=== PATIENT | female | born 1935 | race Caucasian/White ===

== ENCOUNTER → 2016-10-26 | Outpatient (CLI) | payer MEDICARE ==
[~2016-10-26] MED LIST: ACETAMINOPHEN-H1 TA2 PO; ACETAMINOPHEN-O1 TAB PO; AMOXICILLIN500 M2 PO; APAP/CODEINE TAB 300; ASPIRIN ADULT L81 M1 PO; ASPIRIN81 M1 PO; ATARAX25 MG PO; ATIVAN0.5 MG PO; ATIVAN1 MG PO; AUGMENTIN 875875 MG PO; B12100 MC1 PO; BACTRIM DS 8001 TA1 PO; BUT/ASP/CAFF W/1 CAP PO; CEFUROXIME AXE250 MG PO; CENTRUM SILVER1 TA2 PO; CITALOPRAM10 MG PO; CYCLOBENZAPRINE10 MG PO; CYCLOBENZAPRINE5 M3 PO; CYMBALTA30 MG PO; DYMISTA NASAL S23 GM NS; ESTER C 500 MG-1 TAB PO; FIORICET 325 MG1 TAB PO; FLAGYL500 MG PO; FORTEO 250250 MCG/ML SC; FOSAMAX70 MG PO; HYDROCODONE BIT1 T11 PO; HYDROCODONE BIT1 T20 PO; IBU800 M1 PO; IBUPROFEN600 MG PO; INDERAL10 MG PO; LEVOFLOXACIN500 MG PO; LIDEX0.05% T; LOMOTIL 0.025 M1 TA1 PO; LORAZEPAM0.5 MG PO; LOVASTATIN40 MG PO; MIRALAX POWDER17 G1 PO; MIRALAX17 GM/DOSE PO; MOTRIN800 MG PO; NEXIUM40 MG PO; NORCO 7.5-3251 EACH PO; NORVASC10 MG PO; NORVASC5 MG PO; OMEPRAZOLE DR20 MG PO; Oscal,Oyster S500 MG PO; PERCOCET 325 MG1 TA2 PO; PLAVIX75 M1 PO; PLAVIX75 MG PO; PROPRANOLOL HCL10 M1 PO; PROPRANOLOL HCL10 MG PO; ROBAXIN500 M1 PO; ROPINIROLE HYDRO1 MG PO; TYLENOL W/CODEI1 TA2 PO; TYLENOL W/CODEI1 TA4 PO; TYLENOL500 MG PO; VIBRAMYCIN100 MG PO; VICODIN 5/500 505 MG PO; VICODIN 500 MG-1 TAB PO; VITAMIN C500 M4 PO; ZOFRAN ODT4 MG SL; ZOFRAN4 MG PO; ZOVIRAX800 MG PO; ZYRTEC1 MG/ML; ZYRTEC10 MG PO
== END | disposition home or self-care (01) ==
LOC: NM 06:48
DX: K21.9 Gastro-esophageal reflux disease without esophagitis (principal); R11.0 Nausea; R19.7 Diarrhea, unspecified; R11.2 Nausea with vomiting, unspecified; R16.0 Hepatomegaly, not elsewhere classified

== ENCOUNTER → 2017-02-20 | Outpatient (CLI) | payer MEDICARE | END | disposition home or self-care (01) | LOC: RAD 10:29 | DX: M47.894 Other spondylosis, thoracic region (principal); M40.294 Other kyphosis, thoracic region; Q25.46 Tortuous aortic arch ==

== ENCOUNTER → 2017-02-26 | Outpatient (CLI) | payer MEDICARE ==
[~2017-02-26] MED LIST changes: +NEURONTIN300 MG PO; +REQUIP2 M2 PO
[2017-02-26 12:48] LABS: EST GLOM FILT AFRICAN AMERICAN > 60 ml/min
== END | disposition home or self-care (01) ==
LOC: LAB 12:16 → CT 13:00 → LAB 13:00
PROVIDERS: Internal Medicine
DX: R06.02 Shortness of breath (principal)

== ENCOUNTER 2017-03-01 11:27 | Inpatient (IN) | payer MEDICARE ==
[~2017-03-01] VITALS: Ht 152.4 cm; Wt 58.3 kg
--- NOTE | ~2017-03-01 | PR ---
[place], [place] PROGRESS NOTE NAME: SHADY RÍOS [facility] #: [id number] UNIT #: [id number] ROOM: 504 DOCTOR: LEELA FERRERA MD BIRTHDATE: [birth year] DOS: 03/03/2017 SUBJECTIVE: The patient is feeling a lot better, does not have any new complaints. She underwent a bronchoscopy yesterday. OBJECTIVE: VITAL SIGNS: Graphic trend shows a pressure of 142/72, pulse of 74, respirations 18, temperature 98.7. LUNGS: Clear. HEART: Regular. ABDOMEN: Obese, soft, nontender. EXTREMITIES: Without any edema. ASSESSMENT AND PLAN: 1. Right middle lobe collapse, status post bronchoscopy, no evidence of any malignancy was seen. The patient's oxygenation has improved after that, and she is completely off oxygen supplementation. 2. Adult failure to thrive. We will get a PT evaluation to see whether she would benefit from outpatient PT, OT. 3. Benign hypertension, controlled. LEELA FERRERA MD CM:PNTRANS [id number] LEELA FERRERA MD 03/03/17 2342 interface
--- NOTE | ~2017-03-01 | PR ---
[place], [place] PROGRESS NOTE NAME: SHADY RÍOS [facility] #: [id number] UNIT #: [id number] ROOM: 504 DOCTOR: LEELA FERRERA MD BIRTHDATE: [birth year] DOS: 03/04/2017 HISTORY OF PRESENT ILLNESS: The patient is doing fine without any complaints. She has a slight cough, but her shortness of breath has improved. OBJECTIVE: VITAL SIGNS: Pressure is 106/50, pulse of 85, respirations 20, temperature 98.2. LUNGS: Diminished breath sounds. No wheezes, rales or rhonchi heard this morning. HEART: Regular. ABDOMEN: Obese, soft. EXTREMITIES: Without any edema. ASSESSMENT AND PLAN: 1. Right middle lobe collapse with atelectasis, possible infectious process, status post bronchoscopy. Bronch cultures are negative. The patient is started on incentive spirometer. 2. Acute hypoxic respiratory failure, which has resolved. Oxygen saturation has improved. The patient is stable and can be discharged to home today. 3. Adult failure to thrive. PT/OT did evaluate her yesterday and they feel that the patient can be discharged to home with visiting nurses and PT, OT. LEELA FERRERA MD CM:PNTRANS [phone] LEELA FERRERA MD 03/04/17 0721 interface
--- NOTE | ~2017-03-01 | PR ---
[place], [place] PROGRESS NOTE NAME: SHADY RÍOS UNIT #: [id number] ROOM: 504 DOCTOR: GRACE ASHRAF MD BIRTHDATE: [birth year] DOS: 03/04/2017 SUBJECTIVE: The patient reported reduction and improvement in symptoms of cough and shortness of breath. Denies symptoms of chest pain or abdominal pain. The patient stated that pulse oxygen saturation was measured last night at 60%, but a different instrument when used was noted as 95% to 96% saturation on 2 different instrument assessment. The cough has been noted to be decreased for this patient and markedly improved for this patient after the bronchoscopy. The shortness of breath has been resolved. OBJECTIVE: VITAL SIGNS: Showed normal temperature, respiratory rate 20, heart rate 86, blood pressure 120/60. The pulse oxygen saturation recorded on room air is 95% saturation. HEENT: Examination shows head is atraumatic. Eyes are nonicteric. NECK: Supple. CARDIOVASCULAR: S1, S2 audible. LUNGS: The patient was noted without any wheezing or crackles at the present time. ABDOMEN: Soft and nontender. EXTREMITIES: Showed no edema, clubbing, or cyanosis. LABORATORY DATA: Culture of bronchial washing was noted as negative. Chest x-ray of the patient, PA lateral view, showed persistent small subsegmental atelectasis of right middle lobe. IMPRESSION: The patient has chronic atelectasis of the right middle lobe for this patient with resolving acute tracheobronchitis, post-bronchoscopy negative cultures. Improving shortness of breath was also noted. PLAN OF TREATMENT: Discharge the patient on oral antibiotics. Use of bronchodilators and other medical management of this patient have been currently arranged for this patient. If she wished to be seen in my office followup, she can make an appointment; Otherwise, to continue to follow up with the primary care physician for that. [place], [place] PROGRESS NOTE NAME: SHADY RÍOS UNIT #: [id number] ROOM: 504 DOCTOR: GRACE ASHRAF MD BIRTHDATE: [birth year] GRACE FLORES MD CM:PNTRANS [phone] GRACE MENDEZ MD 03/05/17 0250 interface
--- NOTE | ~2017-03-01 | WRIGHTHP ---
[place], [place] PATIENT HISTORY AND PHYSICAL EXAM NAME: SHADY RÍOS [facility] #: [id number] UNIT #: [id number] ROOM: 504 DOCTOR: LEELA FERRERA MD BIRTHDATE: [birth year] DOS: 03/01/2017 HISTORY OF PRESENT ILLNESS: This patient is very well known to us, 81 years old, who came to the office last week with complaints of cough and shortness of breath. As a part of the workup, a CT scan of the chest was done, which showed a right middle lobe collapse. The patient was advised to come into the office, was noted to have increasingly short of breath, and she was admitted to the hospital with acute hypoxic respiratory failure, right middle lobe collapse. The patient denies having any complaints this morning and is quite worried about her procedures that scheduled. She denies having any fever, any chills, any chest pains or palpitations. PAST MEDICAL HISTORY: Significant for; 1. Chronic back pain, low back pain from compression fractures of the back. 2. Postmenopausal osteoporosis. 3. Frailty with falls. 4. Generalized anxiety disorder. 5. Major depression, mild, recurrent. 6. Benign hypertension. 7. Mixed hyperlipidemia. 8. Gastroesophageal reflux disease. 9. Restless legs syndrome. 10. Osteoarthritis of the LS spine. MEDICATIONS: She is on are Oyster Calcium 500 four times a day, amlodipine 5 daily, Plavix 75 daily, duloxetine 30 daily, gabapentin 300 daily, lorazepam 1 mg b.i.d., lovastatin 40 daily, multivitamin one tablet daily, propranolol 10 b.i.d., Requip 2 mg at bedtime. SOCIAL HISTORY: Nonsmoker, does not use any alcohol, very anxious. She is a retired ER nurse. PHYSICAL EXAMINATION: GENERAL: She is awake and alert and oriented, in some mild respiratory distress. VITAL SIGNS: Graphic trend shows a pressure 106/57, pulse is 68, respirations 20, temperature 97.6. LUNGS: Diminished breath sounds. HEART: Regular. ABDOMEN: Obese, soft, nontender. EXTREMITIES: Without any edema. LABORATORY DATA: White cell count is 10.8, hemoglobin 10.5, hematocrit 32.1, platelets 256. BMP: Glucose 109, BUN 10, creatinine 0.80, sodium 138, potassium 3.4, chloride 102, bicarbonate 26. ASSESSMENT AND PLAN: 1. The patient with right middle lobe collapse, which is chronic. She was admitted to the hospital in September had a bronchoscopy which was negative, but this middle lobe collapse is persistent, which is causing acute hypoxic [place], [place] PATIENT HISTORY AND PHYSICAL EXAM [facility]: [facility] [id number] UNIT #: [id number] ROOM: [facility] DOCTOR: LEELA FERRERA MD BIRTHDATE: [birth year] respiratory failure and acute respiratory distress. The patient is placed on oxygen supplementation, breathing treatments. Consultation with Dr. Be has also been obtained. Discussed with him already. 2. Chronic low back pain from compression fractures. Pain is under control with the current medication plan. 3. Generalized anxiety disorder. Restart Ativan. 4. Benign hypertension, controlled. LEELA FERRERA MD CM:HISPHYS:PATIENT HISTORY AND PHYSICAL EXAMINATION [phone] LEELA FERRERA MD 03/02/17 0806 interface
--- NOTE | ~2017-03-01 | PROC NOTE ---
[place], [place] PROCEDURE NOTE NAME: SHADY RÍOS [facility] #: [id number] UNIT #: [id number] ROOM: 504 DOCTOR: SANDRA MENDEZ MD,GRACE BIRTHDATE: [birth year] DOS: 03/02/2017 BRONCHOSCOPY NOTE PREOPERATIVE DIAGNOSES: Chronic right middle lobe subsegmental atelectasis. POSTOPERATIVE DIAGNOSES: Chronic right middle lobe subsegmental atelectasis. There were no endobronchial obstructive lesions were noted. PROCEDURE DESCRIPTION: Informed consent obtained for the patient. The patient brought to the OR and placed in supine position. Conscious sedation administered by the Anesthesia Department. After that, the bronchoscope advanced to the airway into laryngeal area. Epiglottis and vocal cord seen. The vocal cord moving symmetrically with movements. Bronchoscope advanced to the vocal cord and tracheal lumen, showed small amount of mucopurulent secretions suctioned out to the tianna level. Tianna noted sharp. Left upper, lingula, lower lobe bronchi were all noted patent for the patient. Small secretion present in the endobronchial tree, which was cleared up with normal saline wash. Right upper lobe opening for the patient was also noted patent for this patient as well. The right lower lobe opening was noted small amount of mucus impaction cleared up with normal saline wash. Right middle lobe opening was noted free of any endobronchial obstructive lesions. The mucous plug was present in the lateral subsegment of the right middle lobe cleared with a normal saline wash, sent for culture. Procedure was well tolerated by the patient without any problem. Postoperative findings will be discussed with the patient once the patient recovered the effects of acute sedation. No immediate family members were present after completion of procedure to discuss the current findings. GRACE FLORES MD CM:PROCNOTE:PROCEDURE NOTE [id number] GRACE MENDEZ MD
--- NOTE | ~2017-03-01 | DS ---
[place], [place] DISCHARGE SUMMARY [id number] UNIT #: [id number] ROOM: 504 DOCTOR: LEELA FERRERA MD BIRTHDATE: [birth year] DOS: 03/04/2017 DIAGNOSES 1. Acute right middle lobe collapse, which is chronic. 2. Bronchoscopy with negative bronchoscopy cultures. 3. Atelectasis with possible early pneumonia, possible gram negative. 4. Acute hypoxic respiratory failure with acute respiratory distress, resolved. 5. Adult failure to thrive, visiting nurse and PT, OT at home. 6. Benign hypertension. 7. Mixed hyperlipidemia. 8. Generalized anxiety disorder. 9. Chronic back pain with compression fractures, osteoporosis with postmenopausal frailty with multiple falls. DISCHARGE MEDICATIONS: Same as on admission. The only new prescriptions given were incentive spirometry q.i.d., prednisone 5 mg daily for 10 days and Ceftin 250 twice daily for 5 days. HOSPITAL COURSE: The patient is very well known to us, comes in with complaints of difficulty breathing. The patient was admitted to the hospital because of increasing cough and shortness of breath and the CT scan done as an outpatient showed right middle lobe ____. After admission, the patient was placed on oxygen and breathing treatments. Dr. Be was consulted. A bronchoscopy was performed. Bronchoscopy cultures are negative. No endobronchial lesions were noted. Mucous plug was seen, which most likely was responsible for the collapse. The patient had a PT and OT evaluation and they feel that the patient would benefit from visiting nurses at home versus SNF and patient declined SNF consultation this morning. Her saturations improved. She was taken off oxygen. Shortness of breath is better. She has slight cough. She is stable and can be discharged home on p.o. steroids and antibiotics. DISCHARGE MEDICATIONS: As dictated above. [place], [place] DISCHARGE SUMMARY NAME: SHADY RÍOS UNIT #: [id number] ROOM: 504 DOCTOR: LEELA FERRERA MD BIRTHDATE: [birth year] LEELA FERRERA MD CM:DISCHARG 7 [phone] LEELA FERRERA MD 03/04/172035 interface
[~2017-03-01 11:27] MED LIST changes: -NEURONTIN300 MG PO; -REQUIP2 M2 PO
[2017-03-01 12:00] VITALS: BP 128/59
[2017-03-01] MEDS ORDERED: REQUIP2 M2 PO (12:10)
[2017-03-01] MEDS ORDERED: NEURONTIN300 MG PO (12:10)
[2017-03-01 13:20] LABS: BASO % 0.3 % (0.0-1.0); EOS # 0.2 10*3/uL (0.0-0.4); EOS % 1.8 % (1.0-4.0); HEMATOCRIT 32.1 % (37.0-47.0); HEMOGLOBIN 10.5 g/dl (12.0-16.0); IG # 0.1 10*3/uL (0.0-0.1); LYMPH # 0.6 10*3/uL (1.3-4.4); LYMPH % 5.9 % (27.0-41.0); MEAN CORPUSCULAR HGB 30.1 pg (27.0-31.0); MEAN CORPUSCULAR HGB CONC 32.7 g/dl (33.0-37.0); MONO % 9.1 % (3.0-9.0); NEUT # 8.9 10*3/uL (2.3-7.9); NEUT % 82.3 % (47.0-73.0); PLATELET COUNT AUTOMATED 256 10*3/uL (130-400); RED BLOOD COUNT 3.49 10*6/uL (4.10-5.10); RED CELL DISTRI WIDTH 15.8 % (0-14.5); WHITE BLOOD COUNT 10.8 10*3/uL (4.8-10.8)
[2017-03-01 13:29] LABS: PROTHROMBIN TIME 10.6 SECONDS (9.0-12.4)
[2017-03-01 13:42] LABS: COL/EPI 113 SECONDS (86-157)
[2017-03-01 13:46] LABS: BUN 10 mg/dl (7-24); CARBON DIOXIDE 26 mmol/L (21-32); CHLORIDE 102 mmol/L (98-107); EST GLOM FILT AFRICAN AMERICAN > 60 ml/min; GLUCOSE 109 mg/dL (65-99); POTASSIUM 3.4 mmol/L (3.5-5.1); SODIUM 138 mmol/L (136-145)
[2017-03-01 16:00] VITALS: BP 98/47
[2017-03-01 20:02] VITALS: BP 99/46
[2017-03-02] VITALS (9 sets, daily range): BP systolic 88–112; BP diastolic 45–63
[2017-03-03] VITALS: BP 142/72; BP 177/116
[2017-03-03 08:00] VITALS: BP 96/53
[2017-03-03 12:00] VITALS: BP 105/53
[2017-03-03 15:09] LABS: ACID FAST SPEC PROCESSING Concentration (.)
[2017-03-03 16:00] VITALS: BP 112/58
[2017-03-03 20:00] VITALS: BP 99/44
[2017-03-04] VITALS: BP 106/58
[2017-03-04] MEDS ORDERED: CEFUROXIME AXE250 MG PO (07:00)
[2017-03-04] MEDS ORDERED: PREDNISONE5 MG PO (07:00)
[2017-03-04 07:32] LABS: BUN 8 mg/dl (7-24); CARBON DIOXIDE 31 mmol/L (21-32); CHLORIDE 100 mmol/L (98-107); EST GLOM FILT AFRICAN AMERICAN > 60 ml/min; GLUCOSE 104 mg/dL (65-99); POTASSIUM 3.2 mmol/L (3.5-5.1); SODIUM 140 mmol/L (136-145)
[2017-03-04 08:00] VITALS: BP 116/56; BP 120/60
== END 2017-03-04 09:45 | disposition home or self-care (01) | DRG 177 ==
LOC: 5E 11:27
PROVIDERS: Internal Medicine; Internal Medicine Critical Care Medicine
PROC: 0BCB8ZZ Extirpation of Matter from Left Lower Lobe Bronchus, Via Natural or Artificial Opening Endoscopic (ICD-10-PCS; principal; 2017-03-02)
PROC: 0BC98ZZ Extirpation of Matter from Lingula Bronchus, Via Natural or Artificial Opening Endoscopic (ICD-10-PCS; principal; 2017-03-02)
PROC: 0BC68ZZ Extirpation of Matter from Right Lower Lobe Bronchus, Via Natural or Artificial Opening Endoscopic (ICD-10-PCS; principal; 2017-03-02)
PROC: 0BC58ZZ Extirpation of Matter from Right Middle Lobe Bronchus, Via Natural or Artificial Opening Endoscopic (ICD-10-PCS; principal; 2017-03-02)
PROC: 0BC18ZZ Extirpation of Matter from Trachea, Via Natural or Artificial Opening Endoscopic (ICD-10-PCS; principal; 2017-03-02)
DX: J15.6 Pneumonia due to other Gram-negative bacteria (principal); J96.01 Acute respiratory failure with hypoxia; F33.0 Major depressive disorder, recurrent, mild; J98.19 Other pulmonary collapse; T17.890A Other foreign object in other parts of respiratory tract causing asphyxiation, initial encounter; F41.1 Generalized anxiety disorder; I10 Essential (primary) hypertension; E78.2 Mixed hyperlipidemia; J20.9 Acute bronchitis, unspecified; R62.7 Adult failure to thrive; M81.0 Age-related osteoporosis without current pathological fracture; R54 Age-related physical debility; G89.29 Other chronic pain; R29.6 Repeated falls; M54.9 Dorsalgia, unspecified; K21.9 Gastro-esophageal reflux disease without esophagitis; G25.81 Restless legs syndrome; E66.9 Obesity, unspecified; Z68.25 Body mass index [BMI] 25.0-25.9, adult

== ENCOUNTER → 2017-07-27 | Outpatient (CLI) | payer MEDICARE ==
[~2017-07-27] MED LIST changes: +NEURONTIN300 MG PO; +PREDNISONE5 MG PO; +REQUIP2 M2 PO
[2017-07-27 12:41] LABS: CREATININE 0.92 mg/dL (0.55-1.02)
== END | disposition home or self-care (01) ==
LOC: LAB 12:08 → CT 13:00
PROVIDERS: Internal Medicine
DX: R91.1 Solitary pulmonary nodule (principal); R06.02 Shortness of breath; R07.81 Pleurodynia; R11.0 Nausea; Z90.710 Acquired absence of both cervix and uterus; Z85.42 Personal history of malignant neoplasm of other parts of uterus

== ENCOUNTER 2017-10-17 14:03 | Inpatient (IN) | payer MEDICARE ==
[~2017-10-17] VITALS: Ht 152.4 cm; Wt 51.3 kg
--- NOTE | ~2017-10-17 | WRIGHTHP ---
[place], [place] PATIENT HISTORY AND PHYSICAL EXAM NAME: SHADY RÍOS [facility] #: [id number] UNIT #: [id number] ROOM: 411 DOCTOR: SARTHAK ABDI MD BIRTHDATE: [birth year] DOS: 10/17/2017 HISTORY OF PRESENT ILLNESS: The patient is an 82-year-old female with a past medical history of: 1. Adult failure to thrive. 2. Benign essential hypertension. 3. Mixed hyperlipidemia. 4. Generalized anxiety disorder. 5. Postmenopausal osteoporosis and compression fractures of the vertebrae in the past. 6. Frailty and multiple falls. The patient presented to the Emergency Department with complaints of nausea, vomiting and diarrhea, which presented acutely and patient was seen in the Emergency Department. The patient had been sick for approximately 6 days and finally she was feeling some abdominal distention. The patient had lost her appetite. No complaints of any blood in her stools and no vomiting. The patient was recommended for admission and further management. After admission, the patient is starting to feel better. Nausea has resolved and her diarrhea has also getting better. She is having soft stools now and able to tolerate some diet. At home, she was unable to eat. No chest pain, no shortness of breath, no other GI or urinary symptoms. REVIEW OF SYSTEMS: LUNGS: No increasing shortness of breath or wheezing. GASTROINTESTINAL: Complains of nausea, vomiting and diarrhea at home. CARDIOVASCULAR: No chest pains or palpitations. FAMILY HISTORY: Noncontributory. HOME MEDICATIONS: Lovastatin, amlodipine, ropinirole, Plavix. PHYSICAL EXAMINATION: GENERAL: Alert and oriented x 3, in no visible distress. Generalized weakness. HEENT AND NECK: Extraocular movements are intact. Sclerae are anicteric. Oral mucosa is moist and clean. No obvious facial weakness. Neck is supple without any lymphadenopathy. No thyromegaly. No JVD. No carotid arterial bruits. LUNGS: Clear to auscultation. No wheezing. No rhonchi. CARDIOVASCULAR SYSTEM: Heart rate is regular in rate and rhythm. S1 and S2 normally audible. No significant murmur or any other abnormal cardiac sounds. ABDOMEN: Soft, nontender. No obvious organomegaly. Bowel sounds are present. No obvious herniation. EXTREMITIES: Without significant cyanosis or edema. Warm to touch. CENTRAL NERVOUS SYSTEM: Alert and oriented x 3. Cranial nerves II-XII are intact. Speech is normal. The patient is able to move all extremities. Normal muscle strength. Deep tendon reflexes are equal on both sides. Plantars were downgoing. LABORATORY DATA: Urine culture is negative. Normal serum electrolytes. Hemoglobin is 9.1, otherwise normal CBC. Urinalysis not showing any signs of infection. CAT scan of the abdomen and pelvis showed multiple distended loops of small bowel and colon with fluid filled distention of the stomach suggestive [place], [place] PATIENT HISTORY AND PHYSICAL EXAM [facility] [id number] UNIT #: [id number] ROOM: 411 DOCTOR: SARTHAK ABDI MD BIRTHDATE: [birth year] and suggestive of enteritis and colitis, partial small-bowel obstruction. Potassium level of 3.4, leukocytosis from yesterday has resolved. Yesterday, white cell count was 12,000. IMPRESSION: 1. The patient's partial small-bowel obstruction, nausea, vomiting and diarrhea with abdominal pains have all improved and patient being hydrated with normal saline and she is starting to eat now. 2. Old age, frail with adult failure to thrive. The patient is to work with physical therapy. We are taking bedsore precautions. 3. Hypokalemia, to be replaced with potassium supplements. Repeat serum electrolytes are normal. 4. L3 compression fracture and chronic lower back pains, controlled. Also, history of compression fracture of L4 lumbar vertebra. SARTHAK ABDI MD CM:HISPHYS:PATIENT HISTORY AND PHYSICAL EXAMINATION [phone] SARTHAK ABDI MD 10/18/171910 interface
[2017-10-17 14:09] VITALS: BP 124/55
[2017-10-17 14:36] LABS: BASO % 0.3 % (0.0-1.0); EOS # 0.1 10*3/uL (0.0-0.4); EOS % 1.1 % (1.0-4.0); HEMATOCRIT 32.6 % (37.0-47.0); HEMOGLOBIN 10.5 g/dl (12.0-16.0); LYMPH # 0.7 10*3/uL (1.3-4.4); LYMPH % 5.8 % (27.0-41.0); MEAN CELL VOLUME 95.9 fl (81.0-99.0); MEAN CORPUSCULAR HGB 30.9 pg (27.0-31.0); MEAN CORPUSCULAR HGB CONC 32.2 g/dl (33.0-37.0); MEAN PLATELET VOLUME 9.3 fl (9.6-12.3); MONO # 0.8 10*3/uL (0.1-1.0); MONO % 6.4 % (3.0-9.0); NEUT # 10.5 10*3/uL (2.3-7.9); PLATELET COUNT AUTOMATED 266 10*3/uL (130-400); RED CELL DISTRI WIDTH 16.4 % (0-14.5); WHITE BLOOD COUNT 12.2 10*3/uL (4.8-10.8)
[2017-10-17 14:53] LABS: ALBUMIN 3.3 gm/dl (3.1-4.5); ALKALINE PHOSPHATASE 95 U/L (45-117); BUN 9 mg/dl (7-24); CHLORIDE 109 mmol/L (98-107); CREATININE 0.75 mg/dL (0.55-1.02); POTASSIUM 3.4 mmol/L (3.5-5.1); SGOT/AST 21 IU/L (3-35); SGPT/ALT 17 U/L (12-78); SODIUM 143 mmol/L (136-145); TOTAL PROTEIN 6.3 gm/dL (6.4-8.2)
[2017-10-17 14:59] LABS: TROPONIN I < 0.015 ng/ml (<0.045)
[2017-10-17 16:04] LABS: BILIRUBIN NEGATIVE (NEGATIVE); BLOOD NEGATIVE (NEGATIVE); CLARITY CLEAR (CLEAR); COLOR YELLOW (YELLOW); GLUCOSE NEGATIVE (NEGATIVE); KETONE 2+ (NEGATIVE); LEUKO ESTERASE NEGATIVE (NEGATIVE); NITRITE NEGATIVE (NEGATIVE); PH 5.5 (5.0-9.0); SPECIFIC GRAVITY 1.015 (1.005-1.030); UROBILINOGEN 0.2 E.U./dl (0.2-1.0)
[2017-10-17 16:11] LABS: BACTERIA 3+; EPITHELIAL CELLS 0-2; MUCOUS TRACE; WBC 0-2 wbc/hpf (0-5)
[2017-10-17 17:25] VITALS: BP 148/72
[2017-10-17 18:02] VITALS: BP 148/72
[2017-10-17 20:00] VITALS: BP 97/53
[2017-10-18] VITALS: BP 102/66
[2017-10-18 06:18] LABS: BASO % 0.3 % (0.0-1.0); EOS # 0.1 10*3/uL (0.0-0.4); EOS % 1.1 % (1.0-4.0); HEMATOCRIT 28.7 % (37.0-47.0); HEMOGLOBIN 9.1 g/dl (12.0-16.0); LYMPH # 0.7 10*3/uL (1.3-4.4); LYMPH % 8.9 % (27.0-41.0); MEAN CORPUSCULAR HGB 30.4 pg (27.0-31.0); MEAN CORPUSCULAR HGB CONC 31.7 g/dl (33.0-37.0); MEAN PLATELET VOLUME 9.2 fl (9.6-12.3); MONO # 0.6 10*3/uL (0.1-1.0); MONO % 7.4 % (3.0-9.0); NEUT # 6.2 10*3/uL (2.3-7.9); NEUT % 81.9 % (47.0-73.0); PLATELET COUNT AUTOMATED 230 10*3/uL (130-400); RED BLOOD COUNT 2.99 10*6/uL (4.10-5.10); RED CELL DISTRI WIDTH 16.3 % (0-14.5); WHITE BLOOD COUNT 7.6 10*3/uL (4.8-10.8)
[2017-10-18 06:24] LABS: BUN 7 mg/dl (7-24); CHLORIDE 110 mmol/L (98-107); CREATININE 0.67 mg/dL (0.55-1.02); POTASSIUM 3.7 mmol/L (3.5-5.1); SODIUM 144 mmol/L (136-145)
[2017-10-18 08:00] VITALS: BP 98/72
[2017-10-18] MEDS ORDERED: REQUIP2 MG PO (11:55)
[2017-10-18] MEDS ORDERED: AMLODIPINE BESYL5 MG PO (11:59)
[2017-10-18 12:00] VITALS: BP 86/48
[2017-10-18 16:00] VITALS: BP 102/76
[2017-10-18 20:00] VITALS: BP 92/58
[2017-10-19] VITALS: BP 129/83
[2017-10-19 06:09] LABS: BASO % 0.3 % (0.0-1.0); EOS # 0.1 10*3/uL (0.0-0.4); EOS % 2.2 % (1.0-4.0); HEMATOCRIT 29.9 % (37.0-47.0); HEMOGLOBIN 9.6 g/dl (12.0-16.0); LYMPH # 0.8 10*3/uL (1.3-4.4); LYMPH % 13.1 % (27.0-41.0); MEAN CELL VOLUME 96.8 fl (81.0-99.0); MEAN CORPUSCULAR HGB 31.1 pg (27.0-31.0); MEAN CORPUSCULAR HGB CONC 32.1 g/dl (33.0-37.0); MEAN PLATELET VOLUME 8.8 fl (9.6-12.3); MONO # 0.5 10*3/uL (0.1-1.0); MONO % 8.5 % (3.0-9.0); NEUT # 4.6 10*3/uL (2.3-7.9); NEUT % 75.6 % (47.0-73.0); PLATELET COUNT AUTOMATED 236 10*3/uL (130-400); RED BLOOD COUNT 3.09 10*6/uL (4.10-5.10); RED CELL DISTRI WIDTH 16.3 % (0-14.5)
[2017-10-19 06:35] LABS: BUN 6 mg/dl (7-24); CHLORIDE 108 mmol/L (98-107); CREATININE 0.84 mg/dL (0.55-1.02); POTASSIUM 3.1 mmol/L (3.5-5.1); SODIUM 142 mmol/L (136-145)
[2017-10-19 08:00] VITALS: BP 101/48
== END 2017-10-19 10:41 | disposition home or self-care (01) | DRG 392 ==
LOC: ED 14:03 → EDHOLD 16:16 → 4E 16:16
PROVIDERS: Internal Medicine; Nurse Practitioner Family
DX: K52.9 Noninfective gastroenteritis and colitis, unspecified (principal); K56.600 Partial intestinal obstruction, unspecified as to cause; M48.56XA Collapsed vertebra, not elsewhere classified, lumbar region, initial encounter for fracture; M54.5 Low back pain; G89.29 Other chronic pain; E87.6 Hypokalemia; R62.7 Adult failure to thrive; E78.2 Mixed hyperlipidemia; I10 Essential (primary) hypertension; M81.0 Age-related osteoporosis without current pathological fracture; F41.1 Generalized anxiety disorder; Z91.81 History of falling; Z88.1 Allergy status to other antibiotic agents; Z88.5 Allergy status to narcotic agent; Z88.8 Allergy status to other drugs, medicaments and biological substances; Z79.899 Other long term (current) drug therapy; Z79.02 Long term (current) use of antithrombotics/antiplatelets; Z87.440 Personal history of urinary (tract) infections; Z90.710 Acquired absence of both cervix and uterus; Z98.42 Cataract extraction status, left eye; Z90.722 Acquired absence of ovaries, bilateral; Z90.79 Acquired absence of other genital organ(s); Z82.49 Family history of ischemic heart disease and other diseases of the circulatory system; Z83.3 Family history of diabetes mellitus; Z80.9 Family history of malignant neoplasm, unspecified

== ENCOUNTER 2017-12-26 17:33 | Emergency (ER) | payer MEDICARE ==
[~2017-12-26] VITALS: Ht 152.4 cm; Wt 49.0 kg
[~2017-12-26 17:33] MED LIST changes: +AMLODIPINE BESYL5 MG PO; +REQUIP2 MG PO
[2017-12-26 17:38] VITALS: BP 145/92
[2017-12-26 18:27] LABS: BASO % 0.4 % (0.0-1.0); EOS # 0.2 10*3/uL (0.0-0.4); EOS % 2.8 % (1.0-4.0); HEMATOCRIT 34.5 % (37.0-47.0); HEMOGLOBIN 10.8 g/dl (12.0-16.0); LYMPH # 0.8 10*3/uL (1.3-4.4); LYMPH % 10.3 % (27.0-41.0); MEAN CELL VOLUME 95.3 fl (81.0-99.0); MEAN CORPUSCULAR HGB 29.8 pg (27.0-31.0); MEAN CORPUSCULAR HGB CONC 31.3 g/dl (33.0-37.0); MEAN PLATELET VOLUME 9.5 fl (9.6-12.3); MONO # 0.6 10*3/uL (0.1-1.0); MONO % 7.6 % (3.0-9.0); NEUT % 78.4 % (47.0-73.0); PLATELET COUNT AUTOMATED 233 10*3/uL (130-400); RED BLOOD COUNT 3.62 10*6/uL (4.10-5.10); RED CELL DISTRI WIDTH 16.2 % (0-14.5); WHITE BLOOD COUNT 7.6 10*3/uL (4.8-10.8)
[2017-12-26 18:36] LABS: INTERNATIONAL NORM RATIO 0.9 (2.0-3.5)
[2017-12-26 18:46] LABS: ALBUMIN 3.3 gm/dl (3.1-4.5); ALKALINE PHOSPHATASE 104 U/L (45-117); BUN 12 mg/dl (7-24); CHLORIDE 102 mmol/L (98-107); CREATININE 0.89 mg/dL (0.55-1.02); LIPASE 139 U/L (73-393); POTASSIUM 3.8 mmol/L (3.5-5.1); SGOT/AST 20 IU/L (3-35); SGPT/ALT 19 U/L (12-78); SODIUM 137 mmol/L (136-145); TOTAL PROTEIN 6.7 gm/dL (6.4-8.2)
[2017-12-26 18:48] LABS: TROPONIN I < 0.015 ng/ml (<0.045)
== END 2017-12-26 20:28 | disposition home or self-care (01) ==
LOC: ED 17:33
PROVIDERS: Physician Assistant
DX: K92.2 Gastrointestinal hemorrhage, unspecified (principal); Z88.1 Allergy status to other antibiotic agents; Z79.899 Other long term (current) drug therapy

== ENCOUNTER 2018-05-01 17:03 | Inpatient (IN) | payer MEDICARE ==
[~2018-05-01] VITALS: Ht 152.4 cm; Wt 50.0 kg
--- NOTE | ~2018-05-01 | PR ---
[place], [place] PROGRESS NOTE NAME: SHADY RÍOS [facility] #: [id number] UNIT #: [id number] ROOM: 405 DOCTOR: LEELA FERRERA MD BIRTHDATE: [birth year] DOS: 05/03/2018 SUBJECTIVE: The patient is feeling much better, does not have any more nausea, emesis. Did undergo endoscopy yesterday by Dr. Adams and showed some duodenal ulcers. The patient does not have any complaints of chest pains, palpitations, abdominal pain this morning. OBJECTIVE EXAMINATION: GENERAL: She is awake and alert and oriented. LUNGS: Diminished breath sounds, clear. HEART: Regular. ABDOMEN: Soft. EXTREMITIES: Without any edema. ASSESSMENT AND PLAN: 1. 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 The patient is placed on proton pump inhibitors and has remained stable. The plan is to discharge her to home today to be followed up as an outpatient. Iron was low and iron supplementation will be ordered. 2. Benign hypertension, controlled. Restart home medications. LEELA FERRERA MD CM:PNTRANS [phone] LEELA FERRERA MD 05/03/1803 interface
--- NOTE | ~2018-05-01 | CON ---
[place], [place] REPORT OF CONSULTATION [id number] UNIT #: [id number] ROOM: 405 DOCTOR: BETSEY WEBSTER MD BIRTHDATE: [birth year] DOS: 05/02/2018 HISTORY OF PRESENT ILLNESS: An 83-year-old patient who presented with coffee-ground emesis and the patient was on Plavix and there was concern about contribution of Plavix to her coffee-ground products of the emesis. The patient was admitted for definitive evaluation with holding Plavix and endoscopy possibility. White blood cell was 15, H and H of 12 and 40. Normal single chest x-ray. INR 0.9. Comprehensive metabolic panel, GFR of greater than 60. Electrolytes balanced, liver function test normal. Amylase and lipase normal. Troponin normal. CBC, H and H 10 and 33, drop and iron studies low 40s. PAST MEDICAL HISTORY: Associated with hypertension, hyperlipidemia, chronic back pain, nausea, hematemesis, and postmenopausal osteoporosis. SOCIAL HISTORY: Nonsmoker, nonalcohol consumer. FAMILY HISTORY: Noncontributory. ALLERGIES: TO MULTI MEDICATIONS, FENTANYL, CIPROFLOXACIN, LEVOFLOXACIN, MEPERIDINE, PHENERGAN, AND PROPARACAINE POSSIBILITY. MEDICATION: List was reviewed. She has been on pantoprazole amongst others as well as Plavix. PAST SURGICAL HISTORY: Parathyroidectomy, hysterectomy, cataract, tubal ligation, and oophorectomy. REVIEW OF SYSTEMS: HEENT: Denies double vision, blurred vision. RESPIRATORY: Denies acute shortness of breath. CARDIOVASCULAR: Denies acute chest pain. DIGESTIVE SYSTEM: Hematemesis. PHYSICAL EXAMINATION: VITAL SIGNS: Stable. HEENT: Head normocephalic, nontraumatic. Mouth and buccal mucosa benign. NECK: Supple, no thyromegaly, no cervical lymphadenopathy. CHEST: Symmetric anatomy, equal expansion. No wheeze, no rhonchi. HEART: Grade 1/6 systolic murmur at left sternal border. ABDOMEN: Soft. No hepato-organomegaly. Bowel sounds present. EXTREMITIES: No cyanosis, no pedal edema. NEUROLOGIC: Alert and oriented to time, place, and person. IMPRESSION: Hematemesis, drop in H and H, etiology unknown. The patient is on Plavix. Plavix has been on hold since yesterday. OTHER ADJUNCTIVE DIAGNOSES: As outlined above. We are going to proceed with panendoscopy. [place], [place] REPORT OF CONSULTATION NAME: SHADY RÍOS UNIT #: [id number] ROOM: 405 DOCTOR: DARIN ISLAS,BETSEY BIRTHDATE: [birth year] BETSEY WEBSTER MD CM:CONSTR:REPORT OF CONSULTATION 1326 05/11/18 1430 interface
--- NOTE | ~2018-05-01 | O ---
[place], [place] OPERATIVE NOTE NAME: SHADY RÍOS UNIT #: [id number] ROOM: 405 DOCTOR: BETSEY WEBSTER MD BIRTHDATE: [birth year] DOS: 05/02/2018 GASTROENDOSCOPIC REPORT INDICATIONS: An 83-year-old patient who was presented with chief complaint of hematemesis multiple times and the patient has been on Plavix and has been concerned about a source of bleeding, otherwise. Consultation has been in detail dictated. There has been drop in H and H from admission. PAST MEDICAL HISTORY: As identified in consultation. PROCEDURE: Today's procedure part of investigation is panendoscopy plus biopsy and photographic series. PREMEDICATION: Propofol. SCOPE: Olympus forward-viewing gastroscope Q10 video. REPORT: After putting the patient in left lateral position and application of lubricant to the scope, the scope was introduced. Thereafter, under direct visualization, advanced through the length of esophagus without difficulty. Esophagus, cervical, thoracic and distal within normal limits. Small hiatal hernia and about approximately 3cm mass was identified. Gastric pouch was entered. Mild gastritis seen. Duodenal bulb, second and third part within normal limits. Antral biopsy was obtained for H. pylori. GI reflection of the scope reveals a small ulceration in the hiatal sac consistent with Isra ulcer and photographed. Air was suctioned out. The patient was extubated, tolerated the procedure well. IMPRESSION: Hiatal hernia, mild gastritis, [place] ulcer in the hiatal sac. PLAN AND DISCUSSION: We are going to keep her on Protonix 40 mg daily. We are going to add Extra Strength, Gaviscon tablets 1 at bedtime, elevation of the head of the bed 6 inch all time. She is going to be fed today. Thank you again for your kind referral. [place], [place] OPERATIVE NOTE NAME: SHADY RÍOS UNIT #: [id number] ROOM: 405 DOCTOR: BETSEY WEBSTER MD BIRTHDATE: [birth year] BETSEY WEBSTER MD CM:OPRECORD:OPERATIVE NOTE [phone] BETSEY WEBSTER MD 05/11/18 1501 interface
--- NOTE | ~2018-05-01 | WRIGHTHP ---
[place], [place] PATIENT HISTORY AND PHYSICAL EXAM NAME: SHADY RÍOS [facility] #: [id number] UNIT #: [id number] ROOM: 405 DOCTOR: LEELA FERRERA MD BIRTHDATE: [birth year] DOS: 05/01/2018 HISTORY OF PRESENT ILLNESS: An 83-year-old patient, who is very well known to us. The patient states that for the last 3-4 days, she has been increasingly nauseous and had a large emesis yesterday, which was coffee ground, so decided to come into the Emergency Room. She denies having any chest pains or palpitations, does not have any fever or chills, does not have any abdominal pain, nausea, or any emesis. The patient decided to come into the Emergency Room, where she was evaluated and was admitted. This morning, the patient seems to feeling a little bit better. She has some minimal abdominal discomfort and some minimal nausea, but does not have any more emesis. Does not have any diarrhea, does not have any chest pains or palpitations. PAST MEDICAL HISTORY: Significant for: 1. Last hospitalization in 09/2017 with nausea and emesis. At that time, she was admitted with small-bowel obstruction. 2. Also has past medical history of chronic back pain from compression fractures. 3. Postmenopausal osteoporosis. 4. Benign hypertension. 5. Generalized anxiety disorder. 6. Mixed hyperlipidemia. MEDICATIONS ON ADMISSION: Plavix 75 daily, amlodipine 2.5 daily, Bentyl 10 daily p.r.n., cyclobenzaprine 10 t.i.d. p.r.n., duloxetine 30 daily, lovastatin 40 daily, Protonix 40 daily, propranolol 10 b.i.d., Requip 2 mg daily and Zofran 4 mg. SOCIAL HISTORY: Nonsmoker, does not use any alcohol. She is a retired ER nurse. PHYSICAL EXAMINATION: GENERAL: She is awake and alert and oriented. VITAL SIGNS: Blood pressure is 127/79, pulse of 110, respirations 19, and temperature 98.7. LUNGS: Diminished breath sounds. No wheezes, rales or rhonchi heard. HEART: Regular. ABDOMEN: Obese, soft, nontender. Bowel sounds present. EXTREMITIES: Without any edema. ASSESSMENT AND PLAN: 1. The patient admitted with nausea, emesis with coffee-ground material. She did not have a Gastroccult here because she has not had any emesis since admission, but because of her previous history of ileus and emesis of coffee-ground material, an endoscopy will need to be done. She is also on Plavix, so an endoscopy is essential before we restart the Plavix. The patient is placed on IV Protonix, IV fluids. Consultation of Dr. Adams has been obtained. 2. Benign hypertension, controlled. 3. Anemia, rule out iron deficiency. Iron and ferritin have been ordered. [place], [place] PATIENT HISTORY AND PHYSICAL EXAM NAME: SHADY RÍOS UNIT #: [id number] ROOM: 405 DOCTOR: LEELA FERRERA MD BIRTHDATE: [birth year] LEELA FERRERA MD CM:HISPHYS:PATIENT HISTORY AND PHYSICAL EXAMINATION 1 LEELA FERRERA MD 05/02/18 0943 interface
--- NOTE | ~2018-05-01 | DS ---
[place], [place] DISCHARGE SUMMARY [id number] UNIT #: [id number] ROOM: 405 DOCTOR: LEELA FERRERA MD BIRTHDATE: [birth year] DOS: 05/03/2018 DIAGNOSES: 1. Acute gastritis. 2. 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 3. Benign hypertension. 4. Hypothyroidism. 5. Generalized anxiety disorder. 6. Chronic back pain from compression fractures and postmenopausal osteoporosis. 7. Iron deficiency anemia. 8. Possible urinary tract infection. Urine culture not available yet. DISCHARGE MEDICATIONS: The patient's medications are iron sulfate 325 mg daily. The rest of the new prescriptions were Ceftin 250 twice daily for 5 days, metoclopramide 5 mg twice daily p.r.n. for nausea, lovastatin 40 daily, amlodipine 2.5 daily, Cymbalta 30 daily, Plavix 75 daily, Requip 2 mg at bedtime, Protonix 40 daily, propranolol 10 b.i.d., cyclobenzaprine 10 t.i.d. p.r.n. for back spasm, dicyclomine 10 daily p.r.n. for abdominal pain, Zofran 4 mg q. 4 p.r.n. for nausea, emesis. HOSPITAL COURSE: This patient is 83 years old, comes in after having nausea and a large coffee-ground emesis at home. She was admitted, had an iron level which was very low at 42. Iron supplements were started. The patient also underwent endoscopy after continuing the Protonix. The patient was taken to the OR by Dr. Adams and was found to have a Isra ulcer of the hiatal sac, acute erosive gastritis of the stomach and procedures were all finished, the patient was also placed on iron supplements, Gaviscon and Reglan. This morning the patient has no complaints, does not have any nausea, emesis and the plan is to discharge her to home today. Follow up as an outpatient. [place], [place] DISCHARGE SUMMARY NAME: SHADY RÍOS UNIT #: [id number] ROOM: 405 DOCTOR: LEELA FERRERA MD BIRTHDATE: [birth year] LEELA FERRERA MD CM:MAURY [id number] LEELA FERRERA MD 05/03/18 1627 interface
[2018-05-01 17:06] VITALS: BP 114/74
[2018-05-01 17:53] LABS: BASO % 0.3 % (0.0-1.0); EOS # 0.1 10*3/uL (0.0-0.4); EOS % 0.6 % (1.0-4.0); HEMOGLOBIN 12.7 g/dl (12.0-16.0); LYMPH % 6.3 % (27.0-41.0); MEAN CELL VOLUME 96.9 fl (81.0-99.0); MEAN CORPUSCULAR HGB 30.8 pg (27.0-31.0); MEAN CORPUSCULAR HGB CONC 31.8 g/dl (33.0-37.0); MEAN PLATELET VOLUME 9.9 fl (9.6-12.3); MONO % 6.9 % (3.0-9.0); NEUT # 12.9 10*3/uL (2.3-7.9); NEUT % 85.4 % (47.0-73.0); PLATELET COUNT AUTOMATED 303 10*3/uL (130-400); RED BLOOD COUNT 4.13 10*6/uL (4.10-5.10); RED CELL DISTRI WIDTH 16.4 % (0-14.5); WHITE BLOOD COUNT 15.1 10*3/uL (4.8-10.8)
[2018-05-01 18:02] LABS: INTERNATIONAL NORM RATIO 0.9 (2.0-3.5)
[2018-05-01 18:09] LABS: ALBUMIN 3.6 gm/dl (3.1-4.5); ALKALINE PHOSPHATASE 98 U/L (45-117); BUN 21 mg/dl (7-24); CHLORIDE 103 mmol/L (98-107); LIPASE 85 U/L (73-393); POTASSIUM 4.5 mmol/L (3.5-5.1); SGOT/AST 23 IU/L (3-35); SGPT/ALT 19 U/L (12-78); SODIUM 139 mmol/L (136-145); TOTAL PROTEIN 6.8 gm/dL (6.4-8.2)
[2018-05-01 18:10] LABS: TROPONIN I < 0.015 ng/ml (<0.045)
[2018-05-01 19:09] VITALS: BP 100/54
[2018-05-01] MEDS ORDERED: PROTONIX TR40 M1 PO (19:32)
[2018-05-01] MEDS ORDERED: PROPRANOLOL HCL10 MG PO (19:33)
[2018-05-01] MEDS ORDERED: Zofran4 MG SL (19:34)
[2018-05-01] MEDS ORDERED: CYCLOBENZAPRINE10 MG PO (19:34)
[2018-05-01] MEDS ORDERED: DICYCLOMINE HCL10 MG PO (19:35)
[2018-05-02] VITALS (8 sets, daily range): BP systolic 104–130; BP diastolic 45–79
[2018-05-02 06:30] LABS: BASO % 0.3 % (0.0-1.0); EOS # 0.2 10*3/uL (0.0-0.4); EOS % 1.9 % (1.0-4.0); LYMPH # 0.8 10*3/uL (1.3-4.4); LYMPH % 8.2 % (27.0-41.0); MEAN CELL VOLUME 98.8 fl (81.0-99.0); MEAN CORPUSCULAR HGB 30.5 pg (27.0-31.0); MEAN CORPUSCULAR HGB CONC 30.8 g/dl (33.0-37.0); MEAN PLATELET VOLUME 9.1 fl (9.6-12.3); MONO # 0.9 10*3/uL (0.1-1.0); MONO % 8.6 % (3.0-9.0); NEUT # 8.1 10*3/uL (2.3-7.9); NEUT % 80.4 % (47.0-73.0); RED BLOOD COUNT 3.38 10*6/uL (4.10-5.10); RED CELL DISTRI WIDTH 16.4 % (0-14.5); WHITE BLOOD COUNT 10.1 10*3/uL (4.8-10.8)
[2018-05-02 06:37] LABS: HEMATOCRIT 33.4 % (37.0-47.0); HEMOGLOBIN 10.3 g/dl (12.0-16.0); PLATELET COUNT AUTOMATED 208 10*3/uL (130-400)
[2018-05-02 07:00] LABS: BUN 15 mg/dl (7-24); CHLORIDE 111 mmol/L (98-107); CREATININE 0.82 mg/dL (0.55-1.02); POTASSIUM 4.5 mmol/L (3.5-5.1); SODIUM 144 mmol/L (136-145)
[2018-05-02 19:50] LABS: BILIRUBIN NEGATIVE (NEGATIVE); BLOOD NEGATIVE (NEGATIVE); CLARITY CLEAR (CLEAR); COLOR YELLOW (YELLOW); GLUCOSE NEGATIVE (NEGATIVE); KETONE 2+ (NEGATIVE); LEUKO ESTERASE NEGATIVE (NEGATIVE); NITRITE NEGATIVE (NEGATIVE); SPECIFIC GRAVITY <= 1.005 (1.005-1.030); UROBILINOGEN 0.2 E.U./dl (0.2-1.0)
[2018-05-02 20:01] LABS: RBC 0-2 rbc/hpf (0-2)
[2018-05-03] VITALS: BP 136/73
[2018-05-03 06:01] LABS: BASO % 0.4 % (0.0-1.0); EOS # 0.3 10*3/uL (0.0-0.4); EOS % 3.5 % (1.0-4.0); HEMATOCRIT 30.7 % (37.0-47.0); HEMOGLOBIN 9.4 g/dl (12.0-16.0); LYMPH # 0.5 10*3/uL (1.3-4.4); LYMPH % 7.2 % (27.0-41.0); MEAN CELL VOLUME 99.4 fl (81.0-99.0); MEAN CORPUSCULAR HGB 30.4 pg (27.0-31.0); MEAN CORPUSCULAR HGB CONC 30.6 g/dl (33.0-37.0); MEAN PLATELET VOLUME 8.9 fl (9.6-12.3); MONO # 0.6 10*3/uL (0.1-1.0); NEUT % 80.1 % (47.0-73.0); PLATELET COUNT AUTOMATED 177 10*3/uL (130-400); RED BLOOD COUNT 3.09 10*6/uL (4.10-5.10); RED CELL DISTRI WIDTH 16.3 % (0-14.5); WHITE BLOOD COUNT 7.5 10*3/uL (4.8-10.8)
[2018-05-03 06:16] LABS: BUN 7 mg/dl (7-24); CHLORIDE 113 mmol/L (98-107); CREATININE 0.68 mg/dL (0.55-1.02); POTASSIUM 3.7 mmol/L (3.5-5.1); SODIUM 147 mmol/L (136-145)
[2018-05-03] MEDS ORDERED: REGLAN5 MG PO (06:55)
[2018-05-03] MEDS ORDERED: CEFUROXIME AXE250 MG PO (06:55)
[2018-05-03] MEDS ORDERED: FERROUS GLUCON324 M1 PO (06:58)
[2018-05-03 08:00] VITALS: BP 126/60
== END 2018-05-03 09:27 | disposition home or self-care (01) | DRG 378 ==
LOC: ED 17:03 → EDHOLD 19:27 → 4E 19:27
PROVIDERS: Internal Medicine; Physician Assistant
PROC: 0DB78ZX Excision of Stomach, Pylorus, Via Natural or Artificial Opening Endoscopic, Diagnostic (ICD-10-PCS; principal; 2018-05-02)
DX: K29.01 Acute gastritis with bleeding (principal); N39.0 Urinary tract infection, site not specified; D50.9 Iron deficiency anemia, unspecified; I10 Essential (primary) hypertension; K44.9 Diaphragmatic hernia without obstruction or gangrene; M54.9 Dorsalgia, unspecified; G89.29 Other chronic pain; F41.1 Generalized anxiety disorder; K26.4 Chronic or unspecified duodenal ulcer with hemorrhage; E78.2 Mixed hyperlipidemia; E03.9 Hypothyroidism, unspecified; M81.0 Age-related osteoporosis without current pathological fracture; Z79.899 Other long term (current) drug therapy; Z88.1 Allergy status to other antibiotic agents; Z88.8 Allergy status to other drugs, medicaments and biological substances; Z90.710 Acquired absence of both cervix and uterus; Z98.42 Cataract extraction status, left eye; Z82.49 Family history of ischemic heart disease and other diseases of the circulatory system; Z83.3 Family history of diabetes mellitus; Z80.9 Family history of malignant neoplasm, unspecified; Z98.51 Tubal ligation status

== ENCOUNTER → 2018-08-05 | Outpatient (CLI) | payer MEDICARE ==
[~2018-08-05] MED LIST changes: +DICYCLOMINE HCL10 MG PO; +FERROUS GLUCON324 M1 PO; +NORCO 5-325 TA1 EACH PO; +PROTONIX TR40 M1 PO; +REGLAN5 MG PO; +Zofran4 MG SL
== END | disposition home or self-care (01) ==
LOC: MRI 13:23
DX: M17.12 Unilateral primary osteoarthritis, left knee (principal); M81.0 Age-related osteoporosis without current pathological fracture; M25.462 Effusion, left knee; M25.562 Pain in left knee

== ENCOUNTER 2018-09-20 15:35 | Emergency (ER) | payer MEDICARE ==
[~2018-09-20] VITALS: Ht 152.4 cm; Wt 49.9 kg
[~2018-09-20 15:35] MED LIST changes: -NORCO 5-325 TA1 EACH PO
[2018-09-20 15:39] VITALS: BP 114/71
[2018-09-20] MEDS ORDERED: NORCO 5-325 TA1 EACH PO (17:39)
== END 2018-09-20 17:33 | disposition home or self-care (01) ==
LOC: ED 15:35
DX: S42.211A Unspecified displaced fracture of surgical neck of right humerus, initial encounter for closed fracture (principal); S00.83XA Contusion of other part of head, initial encounter; S80.211A Abrasion, right knee, initial encounter; Z79.899 Other long term (current) drug therapy; Z88.1 Allergy status to other antibiotic agents; Z90.710 Acquired absence of both cervix and uterus; Z88.8 Allergy status to other drugs, medicaments and biological substances; W18.2XXA Fall in (into) shower or empty bathtub, initial encounter; Y93.89 Activity, other specified; Y92.091 Bathroom in other non-institutional residence as the place of occurrence of the external cause; Y99.8 Other external cause status

== ENCOUNTER → 2018-09-28 | Outpatient (CLI) | payer MEDICARE ==
[~2018-09-28] MED LIST changes: +NORCO 5-325 TA1 EACH PO
== END | disposition home or self-care (01) ==
LOC: CT 10:21
DX: S42.201A Unspecified fracture of upper end of right humerus, initial encounter for closed fracture (principal); M25.411 Effusion, right shoulder; M19.011 Primary osteoarthritis, right shoulder; W19.XXXA Unspecified fall, initial encounter; Y93.89 Activity, other specified; Y92.89 Other specified places as the place of occurrence of the external cause; Y99.8 Other external cause status

== ENCOUNTER 2018-11-08 13:09 | Inpatient (IN) | payer MEDICARE ==
[~2018-11-08] VITALS: Ht 149.9 cm; Wt 55.1 kg
--- NOTE | ~2018-11-08 | WRIGHTHP ---
[place], [place] PATIENT HISTORY AND PHYSICAL EXAM NAME: SHADY RÍOS [facility] #: [id number] UNIT #: [id number] ROOM: 521 DOCTOR: SARTHAK ABDI MD BIRTHDATE: [birth year] DOS: 11/08/2018 HISTORY OF PRESENT ILLNESS: The patient is an 83-year-old female with a past medical history of: 1. Osteoporosis with multiple compression fractures of her back and other multiple fractures from falls with chronic back pains. The patient has postmenopausal osteoporosis. 2. The patient has ulcer in the hiatal sac with GI bleed history in the past. 3. History of benign essential hypertension. 4. Old age and disability and ambulatory dysfunction. 5. Hypothyroidism. 6. Generalized anxiety disorder. 7. Iron deficiency anemia. The patient presented to the Emergency Department with significant right hip pains and CT of the right hip showed nondisplaced fracture of the tip of the greater trochanter of the right femur and a hematoma posterior to the greater trochanter, deep to the gluteal muscles. X-ray of the lumbar spine showed moderate superior endplate compression fracture at L1, worse than seen in November 2015. The patient without chest pain, increasing shortness of breath. No GI or urinary symptoms. REVIEW OF SYSTEMS: RESPIRATORY: No increasing shortness of breath. GASTROINTESTINAL: No nausea, vomiting, diarrhea, constipation. CARDIOVASCULAR: No chest pains or palpitations. MEDICATIONS: The patient takes amlodipine, Plavix, Flexeril, Cymbalta, [place], iron, lovastatin, metoclopramide, Protonix, propranolol, ropinirole at home. FAMILY HISTORY: Noncontributory. ALLERGIES: Known allergies to QUINOLONES, FENTANYL, PHENERGAN, DEMEROL. PHYSICAL EXAMINATION: GENERAL: Alert, oriented x 3, in no visible distress, with generalized weakness. HEENT AND NECK: Extraocular movements are intact. Sclerae are anicteric. Oral mucosa is moist and clean. No obvious facial weakness. Neck is supple without any lymphadenopathy. No thyromegaly. No JVD. No carotid arterial bruits. LUNGS: Clear to auscultation. No wheezing. No rhonchi. CARDIOVASCULAR SYSTEM: Heart rate is regular in rate and rhythm. S1 and S2 normally audible. No significant murmur or any other abnormal cardiac sounds. ABDOMEN: Soft, nontender. No obvious organomegaly. Bowel sounds are present. No obvious herniation. EXTREMITIES: Without significant cyanosis or edema. Warm to touch. CENTRAL NERVOUS SYSTEM: Alert and oriented x 3. Cranial nerves II-XII are intact. Speech is normal. The patient is able to move all extremities. Normal [place], [place] PATIENT HISTORY AND PHYSICAL EXAM NAME: SHADY RÍOS [facility] #: [id number] UNIT #: [id number] ROOM: 521 DOCTOR: SARTHAK ABDI MD BIRTHDATE: [birth year] muscle strength. Deep tendon reflexes are equal on both sides. Plantars were downgoing. LABORATORY DATA: CT scan results as mentioned above and lumbar spine showed L1 compression fracture as well as vertebroplasty at L3 and L4. IMPRESSION AND PLAN: 1. The patient presenting with nondisplaced fracture of the right greater trochanter with significant pains. The patient is 83-year-old and unable to ambulate. The patient is being admitted and Dr. Ordaz, the orthopedic has been consulted. I will start her on physical therapy and continue Vicodin and fentanyl for pain control. 2. Benign essential hypertension. Blood pressure will be monitored and treated. 3. Hypothyroidism, replace with thyroid supplements. 4. Generalized anxiety disorder, will be treated and controlled as necessary. 5. I am consulting Dr. Ordaz to follow. SARTHAK ABDI MD CM:HISPHYS:PATIENT HISTORY AND PHYSICAL EXAMINATION 08 36 SARTHAK ABDI MD 11/08/182038 interface
--- NOTE | ~2018-11-08 | DS ---
[place], [place] DISCHARGE SUMMARY NAME: SHADY RÍOS [facility] #: [id number] UNIT #: [id number] ROOM: 521 DOCTOR: SARTHAK ABDI MD BIRTHDATE: [birth year] DOS: 11/11/2018 DISCHARGE DIAGNOSES: 1. The patient with inability to ambulate. 2. Multiple compression fractures of the thoracic spine, chronic back pains and history of kyphoplasty. 3. Fracture of the greater trochanter on the right side, nondisplaced. 4. Hyperkalemia. 5. Hypothyroidism. 6. Generalized anxiety disorder. 7. Benign essential hypertension, postmenopausal severe osteoporosis. 8. History of ulcer in the hiatal sac with gastrointestinal bleed history in the past. 9. Old age and disability and ambulatory dysfunction. 10. Iron-deficiency anemia. The patient presented to the Emergency Department with significant right hip pains and CT scan showed a nondisplaced fracture of the tip of the greater trochanter of the right femur. There was also hematoma posterior to the greater trochanter deep to the gluteal muscles. The patient was admitted and evaluated by Dr. Ordaz, the orthopedic surgeon and worked with physical therapy. The patient is now ambulating in the hallways and refused to go for rehab for physical therapy. Pain is being controlled with opioids and the patient to be discharged to home to follow up with Dr. Gloria Lara, her PCP within the week of discharge. Hyperkalemia, was followed and resolved. Hypothyroidism treated with thyroid supplements. Generalized anxiety disorder, being followed, treated and controlled. Hypothyroidism is replaced with thyroid supplements. Benign essential hypertension. Blood pressures were staying on the lower side. Her Norvasc, which was a very small dose, was stopped. LABORATORY DATA: Normal serum electrolytes, potassium level has come down to normal at 4.5. MRI of the right hip showed large gluteal hematoma related to avulsion fracture of the gluteus medius and minimus insertion sites. The patient with moderate superior endplate compression of L1, vertebroplasties of L3 and L4. DISCHARGE MANAGEMENT: Ropinirole 2 mg daily, Cymbalta 30 mg daily, Plavix 75 mg daily, Protonix 40 mg a day, propranolol 10 mg b.i.d., simvastatin 40 mg a day, Flexeril 10 mg 3 times a day as needed, Vicodin every 6 hours p.r.n. for pain. Follow up with her PCP, Dr. Gloria Lara within a week. [place], [place] DISCHARGE SUMMARY NAME: SHADY RÍOS UNIT #: [id number] ROOM: 521 DOCTOR: SARTHAK ABDI MD BIRTHDATE: [birth year] SARTHAK ABDI MD CM:DISCHARG [id number] SARTHAK ABDI MD 11/12/18 0101 interface
--- NOTE | ~2018-11-08 | PR ---
[place], [place] PROGRESS NOTE [id number] UNIT #: [id number] ROOM: 521 DOCTOR: SARTHAK ABDI MD BIRTHDATE: [birth year] DOS: 11/10/2018 SUBJECTIVE: The patient is feeling better. She says she is ambulating better with the walker and would not like to go for rehabilitation, rather than be discharged home tomorrow. OBJECTIVE: VITAL SIGNS: Blood pressure 110/56, heart rate of 80 beats per minute, breathing 16 times per minute, temperature 98.2 degrees Fahrenheit. GENERAL APPEARANCE: The patient is alert and oriented x 3, in no visible distress. Generalized weakness. HEENT AND NECK: Exam within normal limits. CARDIOVASCULAR SYSTEM: Heart rate is regular in rate and rhythm. S1 and S2 normally audible. LUNGS: Clear to auscultation. ABDOMEN: Soft, nontender. No obvious organomegaly. Bowel sounds are present. EXTREMITIES: Without significant cyanosis or edema. IMPRESSION: 1. Hyperkalemia, resolved. 2. Compression fracture of the thoracic spine with kyphoplasty in the past with chronic back pains, controlled with Vicodin and fentanyl. 3. Nondisplaced fracture of the right greater trochanter, evaluated by Dr. Ordaz. 4. Adult failure to thrive and ambulatory dysfunction. Patient to work with physical therapy. 5. Hypothyroidism, replaced with supplements. 6. Generalized anxiety disorder, treated and controlled as necessary. 7. Benign essential hypertension. Blood pressures are being monitored and staying on the lower side, so I will discontinue her amlodipine. SARTHAK ABDI MD CM:PNTRANS [phone] SARTHAK ABDI MD 11/11/18221 interface
--- NOTE | ~2018-11-08 | PR ---
[place], [place] PROGRESS NOTE [id number] UN[facility] #: [id number] ROOM: 521 DOCTOR: SARTHAK ABDI MD BIRTHDATE: [birth year] DOS: 11/09/2018 SUBJECTIVE: The patient is feeling better as compared to yesterday, waiting for Dr. Ordaz's consult. OBJECTIVE: GENERAL APPEARANCE: The patient is alert and oriented x 3, in no visible distress. Generalized weakness. VITAL SIGNS: Blood pressure 107/59, heart rate 70 beats per minute, breathing 16 times per minute, temperature 98 degrees Fahrenheit. HEENT AND NECK: Exam within normal limits. CARDIOVASCULAR SYSTEM: Heart rate is regular in rate and rhythm. S1 and S2 normally audible. LUNGS: Clear to auscultation. ABDOMEN: Soft, nontender. No obvious organomegaly. Bowel sounds are present. EXTREMITIES: Without significant cyanosis or edema. IMPRESSION: 1. Hyperkalemia with a potassium level of 5.2 will be followed. 2. Compression fracture of the T-spine with history of kyphoplasty and chronic back pains controlled with Vicodin and fentanyl. 3. Nondisplaced fracture of the right greater trochanter to be evaluated by Dr. Ordaz. 4. Adult failure to thrive and ambulatory dysfunction. The patient to work with Physical Therapy. 5. Hypothyroidism, replaced with supplements. 6. Generalized anxiety disorder to be treated as necessary. 7. Benign essential hypertension, treated and controlled. SARTHAK ABDI MD CM:PNTRANS [id number] SARTHAK ABDI MD 11/10/18 0423 interface
[2018-11-08 13:09] VITALS: BP 118/61
--- NOTE | 2018-11-08 16:18 | NUR ---
RESTING IN BED WITH EYES CLOSED RESPS ARE EASY AND NON LABORED.
--- NOTE | 2018-11-08 16:51 | NUR ---
SKIN TEAR LEFT FOREARM. INJURED BY HER CAT. NO SURROUNDING REDNESS NOTED.
[2018-11-08 17:50] VITALS: BP 117/61
--- NOTE | 2018-11-08 17:50 | NUR ---
Time: 1749 A 83 year old FEMALE admitted to 5E under services of DR. JIN ISLAS,SARTHAK Sweeney Pt. arrived via stretcher from ER. Chief complaint: PAIN,ACUTE. JOJO GONZALEZ
--- NOTE | 2018-11-08 18:47 | NUR ---
NEW CONSULT FOR DR HALE CALLED TO ANSWERING SERVICE.
--- NOTE | 2018-11-08 18:49 | NUR ---
SPOKE WITH DR HALE- SIMEON ORDER RECEIVED FOR MRI OF RIGHT HIP.
--- NOTE | 2018-11-08 21:36 | NUR ---
PATIENT STATES THAT PAIN IS 5/10 NOW PATIENT GIVEN FLEXRIL FOR PAIN AND MUSCLE SPAMS .
--- NOTE | 2018-11-08 22:13 | NUR ---
PATIENT GIVEN NORCO FOR 8/10 HIP PAIN FROM FRACTURE WILL CONTINUE TO MONITOR
[2018-11-09] VITALS: BP 108/50
--- NOTE | 2018-11-09 05:24 | NUR ---
PATIENT SLEPT ALL NIGHT WITH NO OTHER COMPLAINTS OF PAIN. MELITA NOW THIS MORNING PATIENT GIVEN NORCO FOR PAIN IN RIGHT HIP STATES THAT IT ACHES BUT SHE DOES NOT WANT IT TO GET TO AN 8 AGAIN. WILL MONITOR.
[2018-11-09 07:18] LABS: BASO % 0.8 % (0.0-1.0); EOS # 0.3 10*3/uL (0.0-0.4); EOS % 6.4 % (1.0-4.0); HEMATOCRIT 33.6 % (37.0-47.0); HEMOGLOBIN 10.3 g/dl (12.0-16.0); LYMPH # 0.6 10*3/uL (1.3-4.4); LYMPH % 11.5 % (27.0-41.0); MEAN CELL VOLUME 102.4 fl (81.0-99.0); MEAN CORPUSCULAR HGB 31.4 pg (27.0-31.0); MEAN CORPUSCULAR HGB CONC 30.7 g/dl (33.0-37.0); MEAN PLATELET VOLUME 9.1 fl (9.6-12.3); MONO # 0.6 10*3/uL (0.1-1.0); MONO % 10.7 % (3.0-9.0); NEUT # 3.7 10*3/uL (2.3-7.9); NEUT % 69.8 % (47.0-73.0); PLATELET COUNT AUTOMATED 246 10*3/uL (130-400); RED BLOOD COUNT 3.28 10*6/uL (4.10-5.10); RED CELL DISTRI WIDTH 16.6 % (0-14.5); WHITE BLOOD COUNT 5.3 10*3/uL (4.8-10.8)
--- NOTE | 2018-11-09 07:42 | NUR ---
PHYSICAL THERAPY Nursing screen received. PT orders also received. Thank you. Susy Sepulveda,PT
[2018-11-09 07:45] LABS: BUN 8 mg/dl (7-24); CHLORIDE 107 mmol/L (98-107); CREATININE 0.82 mg/dL (0.55-1.02); SODIUM 143 mmol/L (136-145)
[2018-11-09 07:54] LABS: POTASSIUM 5.2 mmol/L (3.5-5.1)
--- NOTE | 2018-11-09 07:58 | NUR ---
PHYSICAL THERAPY PT orders received. Multiple new fracturs noted. Will require Dr Ordaz consult with determination if surgery required and weight bearing status permitted. In addition: ? new compression fractures L5 and ? progression fx L!, ? if vertebralplasty appropriate. Await consultations and weigth bearing status permitted via ortho. Thank you for this referral. Susy Sepulveda,PT
[2018-11-09 08:00] VITALS: BP 107/59
--- NOTE | 2018-11-09 11:53 | NUR ---
SHADY RÍOS [place] [id number] Please refer to the physician's history and physical for past medical history, comorbid conditions, and allergies. Diagnosis: COMPRESSION FX, LUMBAR SPINE, CLOSED RIGHT HIP Ian Score: 16,AT RISK WOUND DESCRIPTIONS: Location of the wound: left forearm Type of wound: skin tear Thickness: Partial Size: 1.1cm x 0.4cm x 0.1cm Tunneling: none Undermining: none Sinus Tract: none Presence of Exudate: Serous Amount: Light Color: Red Odor: None Periwound Skin Appearance: Normal Wound edges: approximated Pain (associated with wound): none at time of assessment How does patient state this happened? pt stated her cat scratch her 3 days ago. Surface the patient is resting on: Isoflex SKIN PREVENTION RECOMMENDATION: 1. Pressure redistribution support surface as appropriate 2. Elevate heels 3. Remove boots/TEDS every shift and reapply 4. Head of bed 30 degrees as tolerated 5. Assess nutrition and hydration 6. Manage moisture 7. Avoid the use of containment devices while in bed 8. Use absorptive products on surfaces limit layers of linens on bed 9. Turn and reposition every 1-2 hours in bed and every 1 hour in chair as tolerated 10. Weight shifts every 15 minutes while up in chair 11. Offloading with pillows or device to keep heels elevated off bed 12. Monitor skin at least every shift 13. Inspect under medical devices twice a day WOUND TREATMENT RECOMMENDATIONS: Skin tear guidelines: Cleanse left forearm with nss and apply sureprep around the wound therahoney to wound bed and cover with optifoam gentle.
[2018-11-09 12:00] VITALS: BP 94/46
--- NOTE | 2018-11-09 13:33 | NUR ---
Dr. Jose notified of wound care recommendations.
--- NOTE | 2018-11-09 13:35 | NUR ---
Rotary Furnace Operator in to talk to patient. Patient states lives at HOME with ALONE WITH SONS LIVING NEARBY. There are SOME steps in the home. Physician: MAISHA Pharmacy: [facility] Home health services: JUST RELEASED FROM [facility] NOT SURE WHICH ONE Patient's level of ADLs: MODERATE ASSIST Patient has working utilities: YES DME: NONE Follow-up physician's appointment after d/c: PT PREFERS TO MAKE OWN AFTER DISCHARGE Does patient want to access PORTAL?: NO Discharge plan PT STATES SHE LIVES HOME ALONE WITH SONS LIVING NEARBY AND CHECKING ON HER FREQUENLY. PT STATES SHE HAS HAD FALLS AT HOME BUT NONE RECENTLY. PT SAYS SHE IS WAITING ON DR HALE TO SEE HER BUT IF SHE HAS TO HAVE SURGERY SHE WANTS TO GO TO [place] WITH DR DUCKWORTH. ATTEMPED TO TALK TO PT ABOUT SNF FOR PT OR HOME HEALTH. PT STATES IF I DON'T HAVE TO HAVE SURGERY I DON'T NEED THEM. PT SON IS PRESENT AND STATES IF SHE CAN'T WALK HE CAN'T TAKE CARE OF HER. PT SAYS SHE THINKS SHE CAN WALK. PT HAD NOT WORKED WITH PT WHEN I WAS IN TO SEE HER. WILL WAIT FOR PT NOTES AND DR HALE TO SEE PT THEN REVIST PT ABOUT DISCHARGE PLANS. WILL CONTINUE TO FOLLOW.. WALTER GONZALEZ
--- NOTE | 2018-11-09 14:05 | NUR ---
PT DOWN FOR MRI.
--- NOTE | 2018-11-09 15:06 | NUR ---
PT BACK FROM MRI.
[2018-11-09 16:00] VITALS: BP 102/57
--- NOTE | 2018-11-09 16:10 | NUR ---
Nursing screen received and chart review completed. Recommend OT evaluation at this time. Thank you. Kirsten Buckner OTR/L
[2018-11-09 20:00] VITALS: BP 118/53
--- NOTE | 2018-11-09 22:00 | NUR ---
HS MEDICATIONS TAKEN WITH EASE. ASSESSMENT COMPLETE. PT DENIES PAIN AT THIS TIME AND ADVISED TO RING CALL [place] FOR NURSE IF SHE DOES BEGIN TO HAVE PAIN. PT REMINDED OF PRN MEDICATIONS. RESPIRATIONS EASY AND UNLABORED ON ROOM AIR. NO S/S OF DISTRESS. CALL LIGHT IN REACH.
[2018-11-10] VITALS: BP 98/53
--- NOTE | 2018-11-10 02:41 | NUR ---
PT RESTING IN BED, NO S/S OF DISTRESS. RESPIRATIONS EASY AND UNLABORED ON ROOM AIR. ALL SAFETY MEASURES IN PLACE. CALL LIGHT IN REACH.
--- NOTE | 2018-11-10 05:24 | NUR ---
PT C/O GENERALIZED PAIN. NORCO GIVEN AT THIS TIME. WILL MONITOR FOR EFFECTIVENESS. CALL LIGHT IN REACH.
[2018-11-10 07:09] LABS: BUN 10 mg/dl (7-24); CHLORIDE 107 mmol/L (98-107); CREATININE 0.86 mg/dL (0.55-1.02); POTASSIUM 4.5 mmol/L (3.5-5.1); SODIUM 142 mmol/L (136-145)
[2018-11-10 08:00] VITALS: BP 110/56
--- NOTE | 2018-11-10 10:30 | NUR ---
IN TO TALK TO PT. SHE IS AGREEABLE TO GO TO REHAB SUITES. SHOES SALESPERSON INFORMED.
--- NOTE | 2018-11-10 11:59 | NUR ---
PT JUST IN AND STATES THAT PT WALKED WELL WITH HER AND NOW WANTS TO GO HOME AND NOT TO REHAB SUITES.
--- NOTE | 2018-11-10 12:24 | NUR ---
PT IS AGREEABLE TO HOME HEALTH FOR NURSE AND PT.
--- NOTE | 2018-11-10 13:36 | NUR ---
PHYSICAL THERAPY PAtient evaluated on 5, full evaluation to follow. Continue with PT as per plan of care with fall, injury to right hip permitted WBAT via orthopedics and acute debility precautions. Recommend home with home health RN and PT and aides prn. PAtient is moderate complexity via chart review, tests and evaluation: [id number]. Thank you for this referral. Susy Sepulveda,PT
--- NOTE | 2018-11-10 14:09 | NUR ---
PHYSICAL THERAPY Patient presented to therapy in sitting position with NO CHAIR ALARM ATTACHED and report of 3/10 pain in the R hip. Patient agrees to therapy session. Patient was identified by name and . Patient performed STS transfer with SBA. Patient ambulated with W/W and CGA X 1 for 180' x 1 with no spO2 and no LOB or SOB. Patient transferred back to sitting position in bedside chair with SBA. Patient was left in bedside chair with call light within reach and chair alarm tested and attached to chair and patient. There was NO CHAIR ALARM when this ADDICTION THERAPIST went into patient's room. This ADDICTION THERAPIST went to find a chair alarm and did attach the alarm to the patient's chair and to the patient, after testing the alarm to ensure it was working. Patient was 1:1 with this ADDICTION THERAPIST for 15 minutes total. BRENDA SAAVEDRA ADDICTION THERAPIST
--- NOTE | 2018-11-10 14:53 | NUR ---
Shift chart check completed.
[2018-11-10 16:00] VITALS: BP 95/50
[2018-11-11] VITALS: BP 110/55
[2018-11-11 08:00] VITALS: BP 106/76
--- NOTE | 2018-11-11 11:31 | NUR ---
PHYSICAL THERAPY Patient presented to therapy in supine with head of bed elevated and report of little if any , pain in the R Hip. Patient also says she is very board and wants to go home and take care her cats. Patient performed supine to sitting at EOB transfer with MOD I. Patient STS transfer with SBA. Patient ambulated with W/W and CLose Supervision for 100' x 1 [address] rear stairwell where she ascended and descended 12 steps with CGA X 1 with no difficulty. Patient ambulated with W/W and Close Supervision from rear stairwell for a total of 150' x 1 with no LOB and mild SOB. Patient transferred into bedside chair where chair alarm was tested and attached to patient and call light left within reach. Patient was 1:1 with this PUMP HOUSE TECHNICIAN for 17 minutes total. Patient is reccommended for discharge to home with HH PT upon discharge. BRENDA SAAVEDRA PUMP HOUSE TECHNICIAN
--- NOTE | 2018-11-11 15:32 | NUR ---
Discharge instructions reviewed with patient/family. Patient receptive and verbalizes understanding. Follow-up care arranged. Written instructions given to patient/family. SHIELA LANE
--- NOTE | 2018-11-11 16:00 | NUR ---
PT DENIED NEED FOR HOME HEALTH AT THIS TIME.
--- NOTE | 2018-11-21 08:15 | NUR ---
PHYSICAL THERAPY CO-SIGN I approve of the Phyical Therapy notes written above. TENISHA MOSS PT
[2019-02-17] MEDS ORDERED: AUGMENTIN 875-875 MG PO (11:04)
[2019-03-03] MEDS ORDERED: CALCIUM + D SO1 EACH PO (10:07)
[2019-03-03] MEDS ORDERED: CENTRUM SILVER1 EAC1 PO (10:08)
[2019-03-06] MEDS ORDERED: SYMB80 INH (08:35)
[2019-03-06] MEDS ORDERED: CYMBALTA30 MG PO (08:35)
[2019-03-06] MEDS ORDERED: CEFUROXIME AXE250 MG PO (08:35)
[2019-03-06] MEDS ORDERED: PREDNISONE5 MG PO (08:35)
[2019-06-08] MEDS ORDERED: FLAGYL500 MG PO (08:23)
== END 2018-11-11 15:32 | disposition home or self-care (01) | DRG 536 ==
LOC: ED 13:09 → EDHOLD 17:14 → 5E 17:14
PROVIDERS: ADMIT Internal Medicine
DX: S72.144A Nondisplaced intertrochanteric fracture of right femur, initial encounter for closed fracture (principal); S32.050A Wedge compression fracture of fifth lumbar vertebra, initial encounter for closed fracture; R26.2 Difficulty in walking, not elsewhere classified; R62.7 Adult failure to thrive; E87.5 Hyperkalemia; F41.1 Generalized anxiety disorder; E03.9 Hypothyroidism, unspecified; M81.0 Age-related osteoporosis without current pathological fracture; D50.0 Iron deficiency anemia secondary to blood loss (chronic); X58.XXXA Exposure to other specified factors, initial encounter; I10 Essential (primary) hypertension; S70.01XA Contusion of right hip, initial encounter; Z88.8 Allergy status to other drugs, medicaments and biological substances; Z88.1 Allergy status to other antibiotic agents; Z79.1 Long term (current) use of non-steroidal anti-inflammatories (NSAID); Z79.899 Other long term (current) drug therapy; Y93.89 Activity, other specified; Y92.89 Other specified places as the place of occurrence of the external cause; Y99.8 Other external cause status

== ENCOUNTER → 2018-11-30 | Outpatient (CLI) | payer MEDICARE | END | disposition home or self-care (01) | LOC: MRI 11-24 13:00 | DX: M84.48XA Pathological fracture, other site, initial encounter for fracture (principal); M47.816 Spondylosis without myelopathy or radiculopathy, lumbar region; M48.061 Spinal stenosis, lumbar region without neurogenic claudication; M51.36 Other intervertebral disc degeneration, lumbar region; Z98.890 Other specified postprocedural states ==

== ENCOUNTER 2019-05-04 17:32 | Emergency (ER) | payer MEDICARE ==
[~2019-05-04] VITALS: Ht 152.4 cm; Wt 49.0 kg
[~2019-05-04 17:32] MED LIST changes: +AUGMENTIN 875-875 MG PO; +CALCIUM + D SO1 EACH PO; +CENTRUM SILVER1 EAC1 PO; +SYMB80 INH
[2019-05-04 17:35] VITALS: BP 112/94
[2019-05-04] MEDS ORDERED: TRAMADOL HCL50 MG PO (20:14)
[2019-06-08] MEDS ORDERED: FLAGYL500 MG PO (08:23)
== END 2019-05-04 20:01 | disposition home or self-care (01) ==
LOC: ED 17:32
DX: S01.81XA Laceration without foreign body of other part of head, initial encounter (principal); S40.012A Contusion of left shoulder, initial encounter; S60.051A Contusion of right little finger without damage to nail, initial encounter; M25.522 Pain in left elbow; J45.909 Unspecified asthma, uncomplicated; Z88.1 Allergy status to other antibiotic agents; Z88.6 Allergy status to analgesic agent; Z88.8 Allergy status to other drugs, medicaments and biological substances; Z79.899 Other long term (current) drug therapy; W01.198A Fall on same level from slipping, tripping and stumbling with subsequent striking against other object, initial encounter; Y93.01 Activity, walking, marching and hiking; Y92.008 Other place in unspecified non-institutional (private) residence as the place of occurrence of the external cause; Y99.8 Other external cause status

== ENCOUNTER → 2019-10-31 | Outpatient (CLI) | payer MEDICARE ==
[~2019-10-31] MED LIST changes: +TRAMADOL HCL50 MG PO
[2019-10-31 13:52] LABS: BASO % 0.6 % (0.0-1.0); EOS # 0.4 10*3/uL (0.0-0.4); EOS % 5.4 % (1.0-4.0); HEMOGLOBIN 11.4 g/dl (12.0-16.0); LYMPH # 0.9 10*3/uL (1.3-4.4); MEAN CELL VOLUME 97.8 fl (81.0-99.0); MEAN CORPUSCULAR HGB CONC 31.7 g/dl (33.0-37.0); MEAN PLATELET VOLUME 9.5 fl (9.6-12.3); MONO # 0.7 10*3/uL (0.1-1.0); MONO % 9.6 % (3.0-9.0); NEUT # 4.9 10*3/uL (2.3-7.9); NEUT % 70.5 % (47.0-73.0); PLATELET COUNT AUTOMATED 241 10*3/uL (130-400); RED BLOOD COUNT 3.68 10*6/uL (4.10-5.10); RED CELL DISTRI WIDTH 17.6 % (0-14.5); WHITE BLOOD COUNT 6.9 10*3/uL (4.8-10.8)
[2019-10-31 14:20] LABS: ALBUMIN 3.7 gm/dl (3.1-4.5); ALKALINE PHOSPHATASE 109 U/L (45-117); BUN 14 mg/dl (7-24); CHLORIDE 112 mmol/L (98-107); CHOLESTEROL 144 mg/dL (<200); CREATININE 0.79 mg/dL (0.55-1.02); FREE T4 0.88 ng/dl (0.76-1.46); HDL CHOLESTEROL 75 mg/dl (40-60); LDL CHOLESTEROL 49 mg/dL (9-159); POTASSIUM 3.4 mmol/L (3.5-5.1); SGOT/AST 25 IU/L (3-35); SGPT/ALT 24 U/L (12-78); SODIUM 141 mmol/L (136-145); TOTAL PROTEIN 6.7 gm/dL (6.4-8.2); TRIGLYCERIDES 99 mg/dl (<150); VLDL CHOLESTEROL 20 mg/dL (6-40)
[2019-10-31 15:38] LABS: VITAMIN D, 25-HYDROXY 33.5 ng/mL (30-100)
[2019-11-01 08:06] LABS: RHEUMATOID ARTHRITIS FACTOR <10.0 IU/mL (0.0-13.9)
[2019-11-03 00:06] LABS: CCP ANTIBODIES IGG/IGA 8 units (0-19)
== END | disposition home or self-care (01) ==
LOC: LAB 13:16
PROVIDERS: Internal Medicine
DX: I10 Essential (primary) hypertension (principal); M19.049 Primary osteoarthritis, unspecified hand; E55.9 Vitamin D deficiency, unspecified; D52.9 Folate deficiency anemia, unspecified; D51.9 Vitamin B12 deficiency anemia, unspecified

== ENCOUNTER 2020-06-14 22:56 | Inpatient (IN) | payer MEDICARE ==
[~2020-06-14] VITALS: Ht 152.4 cm; Wt 43.8 kg
[2020-06-14 23:12] VITALS: BP 129/106
[2020-06-15 00:20] LABS: BASO # 0.1 10*3/uL (0.0-0.1); BASO % 0.4 % (0.0-1.0); EOS # 0.3 10*3/uL (0.0-0.4); EOS % 1.5 % (1.0-4.0); HEMATOCRIT 41.6 % (37.0-47.0); LYMPH # 0.7 10*3/uL (1.3-4.4); LYMPH % 3.7 % (27.0-41.0); MEAN CELL VOLUME 97.9 fl (81.0-99.0); MEAN CORPUSCULAR HGB 30.8 pg (27.0-31.0); MEAN CORPUSCULAR HGB CONC 31.5 g/dl (33.0-37.0); MEAN PLATELET VOLUME 9.8 fl (9.6-12.3); MONO # 1.2 10*3/uL (0.1-1.0); NEUT % 87.7 % (47.0-73.0); PLATELET COUNT AUTOMATED 279 10*3/uL (130-400); RED BLOOD COUNT 4.25 10*6/uL (4.10-5.10); RED CELL DISTRI WIDTH 16.8 % (0-14.5); WHITE BLOOD COUNT 19.4 10*3/uL (4.8-10.8)
[2020-06-15 00:35] LABS: ALBUMIN 3.6 gm/dl (3.1-4.5); ALKALINE PHOSPHATASE 105 U/L (45-117); BUN 18 mg/dl (7-24); CHLORIDE 110 mmol/L (98-107); CREATININE 0.84 mg/dL (0.55-1.02); LIPASE 68 U/L (73-393); POTASSIUM 4.1 mmol/L (3.5-5.1); SGOT/AST 26 IU/L (3-35); SGPT/ALT 25 U/L (12-78); SODIUM 141 mmol/L (136-145); TOTAL PROTEIN 6.7 gm/dL (6.4-8.2)
[2020-06-15 01:07] VITALS: BP 149/77
[2020-06-15 01:18] VITALS: BP 140/77
[2020-06-15 02:05] LABS: BILIRUBIN NEGATIVE; BLOOD NEGATIVE (NEGATIVE); CLARITY CLEAR (CLEAR); COLOR YELLOW (YELLOW); GLUCOSE NEGATIVE; KETONE NEGATIVE; UROBILINOGEN 0.2 E.U./dl (0.2-1.0)
[2020-06-15 02:06] LABS: NITRITE NEGATIVE (NEGATIVE)
[2020-06-15 02:08] LABS: LEUKO ESTERASE TRACE (NEGATIVE)
[2020-06-15 02:13] LABS: BACTERIA TRACE; MUCOUS 1+
--- NOTE | 2020-06-15 05:23 | NUR ---
PATIENT AMBULATED TO RESTROOM AT THIS TIME WITH RN ASSISTANCE AND BACK TO BED AT THIS TIME. RESPIRATIONS EASY, NON-LABORED ON ROOM AIR. RN WILL CONTINUE TO MONITOR.
--- NOTE | 2020-06-15 06:36 | NUR ---
MULTIPLE BRUISES NOTED TO BILATERAL LEGS AT THIS TIME.
[2020-06-15 07:54] VITALS: BP 120/65
[2020-06-15 08:01] VITALS: BP 132/91
--- NOTE | 2020-06-15 08:01 | NUR ---
A 85, admitted to 5E, under the services of LEELA Snow MD with a diagnosis of PARTIAL SMALL BOWEL OBSTRUCTION. Chief complaint is NAUSEA, ABD PAIN. Patient arrived via bed from ER. Monitor applied. Initial assessment completed. Vital signs taken and recorded. LEELA SNOW MD notified of admission to the unit. Orders received. See assessment for past medical history, medications and allergies. Patient and/or family oriented to unit. visitation policy reviewed. Clothing/patient valuable form completed. JULITA CORTES
--- NOTE | 2020-06-15 08:30 | NUR ---
PT OFF FLOOR FOR CT OF CHEST, TRANSPORTED VIA WC. LEFT IN A STABLE CONDITION.
--- NOTE | 2020-06-15 08:44 | NUR ---
PT RETURNED TO FLOOR AT THIS TIME.
[2020-06-15] MEDS ORDERED: TOBREX OPHTH O3.5 GM T (08:56)
--- NOTE | 2020-06-15 09:00 | NUR ---
OKBLAIR PER DR. FERRERA TO TAKE REQUIP WITH A SIP OF WATER TO HELP WITH RLS. PT UNDERSTANDS AND IS IN AGREEMENT.
--- NOTE | 2020-06-15 11:00 | NUR ---
ORDERED REQUIP WAS EFFECTIVE, PT RESTING QUIETLY IN BED. NO DISTRESS NOTED, CALL LIGHT WITHIN REACH.
[2020-06-15 16:00] VITALS: BP 133/81
--- NOTE | 2020-06-15 18:38 | NUR ---
PT GIVEN IV ANTIBIOTICS. NO S/S OF DISTRESS. RESPIRATIONS UNLABORED ON ROOM AIR. PT SLEEPING IN BED AT THIS TIME. WILL CONTINUE TO MONITOR. CALL LIGHT IN REACH.
[2020-06-16] VITALS: BP 102/51
[2020-06-16 06:12] LABS: BASO % 0.3 % (0.0-1.0); EOS # 0.1 10*3/uL (0.0-0.4); HEMATOCRIT 35.2 % (37.0-47.0); LYMPH # 0.8 10*3/uL (1.3-4.4); LYMPH % 8.1 % (27.0-41.0); MEAN CELL VOLUME 100.3 fl (81.0-99.0); MEAN CORPUSCULAR HGB 31.6 pg (27.0-31.0); MEAN CORPUSCULAR HGB CONC 31.5 g/dl (33.0-37.0); MEAN PLATELET VOLUME 9.3 fl (9.6-12.3); MONO # 0.8 10*3/uL (0.1-1.0); MONO % 7.9 % (3.0-9.0); NEUT # 7.8 10*3/uL (2.3-7.9); NEUT % 81.9 % (47.0-73.0); PLATELET COUNT AUTOMATED 219 10*3/uL (130-400); RED BLOOD COUNT 3.51 10*6/uL (4.10-5.10); RED CELL DISTRI WIDTH 17.2 % (0-14.5); WHITE BLOOD COUNT 9.6 10*3/uL (4.8-10.8)
[2020-06-16 06:24] LABS: BUN 11 mg/dl (7-24); CHLORIDE 112 mmol/L (98-107); POTASSIUM 4.6 mmol/L (3.5-5.1); SODIUM 142 mmol/L (136-145)
--- NOTE | 2020-06-16 07:30 | NUR ---
TOOK OVER CARE OF PT AT THIS TIME. PT RESTING IN BED. NO S/S OF DISTRESS NOTED. RESPIRATIONS UNLABORED ON ROOM AIR. IV FLUIDS INFUSING PER ORDERS. SAFETY MEASURES IN PLACE. CALL LIGHT IN REACH.
[2020-06-16 08:00] VITALS: BP 157/70
--- NOTE | 2020-06-16 08:00 | NUR ---
PT OFF FLOOR FOR ABD SERIES, DEPARTED IN STABLE CONDITION.
--- NOTE | 2020-06-16 08:20 | NUR ---
RETURNED TO FLOOR AT THIS TIME, NO DISTRESS NOTED.
--- NOTE | 2020-06-16 08:45 | NUR ---
DR FERRERA IN TO SEE PT AT THIS TIME, NEW ORDERS OBTAINED.
--- NOTE | 2020-06-16 11:30 | NUR ---
PT ORDERED BREAKFAST AND TOLERATED IT WELL. DENIES AB PAIN, N/V/D.
--- NOTE | 2020-06-16 13:15 | NUR ---
PT RESTING IN CHAIR, NO DISTRESS NOTED. CALL LIGHT WITHIN REACH.
[2020-06-16 16:00] VITALS: BP 102/80
--- NOTE | 2020-06-16 17:31 | NUR ---
Shift chart check completed.
[2020-06-16 20:00] VITALS: BP 124/81
[2020-06-17] VITALS: BP 137/66
[2020-06-17 08:00] VITALS: BP 132/64
[2020-06-17] MEDS ORDERED: FLAGYL500 MG PO (08:34)
--- NOTE | 2020-06-17 08:45 | NUR ---
PT SITTING UP IN CHAIR. RESP-EASY AND REGULAR. NO C/O AT THIS TIME. CALL LIGHT IN REACH. SEE SHIFT ASSESSMENT.
--- NOTE | 2020-06-17 09:34 | NUR ---
Nutritional Support Services Note: Pt is tolerating a regular diet. Eating 100%. NPO at this time for abdominal series. No c/o of nausea and vomiting. Will continue to follow. Dx of parial bowel abstruction. Neela Newell Rdn Ld
--- NOTE | 2020-06-17 10:00 | NUR ---
PT OFF FLOOR FOR TEST.
--- NOTE | 2020-06-17 10:25 | NUR ---
Patient is off floor for testing. Will assess at a later time.
--- NOTE | 2020-06-17 14:30 | NUR ---
Discharge instructions reviewed with patient/family. Patient receptive and verbalizes understanding. Follow-up care arranged. Written instructions given to patient/family. HEPLOCK REMOVED 2X2 APPLIED. PT ESCORTED VIA WHEELCHAIR TO FRONT FOR DISCHARGE. AUBREE LANDRY R
== END 2020-06-17 14:30 | disposition home or self-care (01) | DRG 392 ==
LOC: ED 22:56 → EDHOLD 06-15 06:18 → 5E 06-15 06:18
PROVIDERS: Physician Assistant; ADMIT Internal Medicine; ATTEND Internal Medicine
DX: K52.9 Noninfective gastroenteritis and colitis, unspecified (principal); K44.0 Diaphragmatic hernia with obstruction, without gangrene; G25.81 Restless legs syndrome; I10 Essential (primary) hypertension; M89.49 Other hypertrophic osteoarthropathy, multiple sites; R80.9 Proteinuria, unspecified; E03.9 Hypothyroidism, unspecified; R91.1 Solitary pulmonary nodule; F41.1 Generalized anxiety disorder; Z88.1 Allergy status to other antibiotic agents; Z88.8 Allergy status to other drugs, medicaments and biological substances; Z82.49 Family history of ischemic heart disease and other diseases of the circulatory system; Z83.3 Family history of diabetes mellitus

== ENCOUNTER 2020-09-03 16:03 | Inpatient (IN) | payer MEDICARE ==
[~2020-09-03] VITALS: Ht 149.8 cm; Wt 43.8 kg
[~2020-09-03 16:03] MED LIST changes: +TOBREX OPHTH O3.5 GM T
[2020-09-03 16:10] VITALS: BP 131/80
[2020-09-03 16:30] VITALS: BP 146/97
[2020-09-03 17:07] LABS: BASO # 0.1 10*3/uL (0.0-0.1); BASO % 0.5 % (0.0-1.0); EOS # 0.2 10*3/uL (0.0-0.4); EOS % 2.2 % (1.0-4.0); HEMATOCRIT 37.7 % (37.0-47.0); LYMPH # 0.8 10*3/uL (1.3-4.4); LYMPH % 7.4 % (27.0-41.0); MEAN CELL VOLUME 101.3 fl (81.0-99.0); MEAN CORPUSCULAR HGB 32.3 pg (27.0-31.0); MEAN CORPUSCULAR HGB CONC 31.8 g/dl (33.0-37.0); MEAN PLATELET VOLUME 9.2 fl (9.6-12.3); MONO # 0.8 10*3/uL (0.1-1.0); MONO % 7.9 % (3.0-9.0); NEUT # 8.3 10*3/uL (2.3-7.9); NEUT % 81.1 % (47.0-73.0); PLATELET COUNT AUTOMATED 223 10*3/uL (130-400); RED BLOOD COUNT 3.72 10*6/uL (4.10-5.10); RED CELL DISTRI WIDTH 16.9 % (0-14.5); WHITE BLOOD COUNT 10.2 10*3/uL (4.8-10.8)
[2020-09-03 17:17] LABS: INTERNATIONAL NORM RATIO 0.9 (2.0-3.5)
[2020-09-03 17:28] LABS: ALBUMIN 3.4 gm/dl (3.1-4.5); ALKALINE PHOSPHATASE 89 U/L (45-117); BUN 14 mg/dl (7-24); CHLORIDE 109 mmol/L (98-107); CREATININE 0.78 mg/dL (0.55-1.02); POTASSIUM 3.7 mmol/L (3.5-5.1); SGOT/AST 20 IU/L (3-35); SGPT/ALT 20 U/L (12-78); SODIUM 145 mmol/L (136-145); TOTAL PROTEIN 6.6 gm/dL (6.4-8.2)
[2020-09-03 19:28] VITALS: BP 132/76
--- NOTE | 2020-09-03 20:25 | NUR ---
THE PATIENT HAD A GUSH OF BLOOD FROM HER RECTUM. SHE WAS CLEANED UP. AND THE MASTIC MAN WAS NOTIFIED
--- NOTE | 2020-09-03 21:58 | NUR ---
DR. WEBSTER IN AND GAVE ORDER FOR PATIENT TO BE NPO AFTER MIDNIGHT AND IS TO HAVE EGD IN THE AM. ADAN BAUGH NOTIFIED.
--- NOTE | 2020-09-03 22:00 | NUR ---
PT SITTING ON BED WATCHING TV. VOICES NO COMPLAINTS. SUMAN DE LA CRUZ RN.
--- NOTE | 2020-09-03 22:00 | NUR ---
0328 DR GONZALEZ HERE TO SEE THE PATIENT. ORDER PLACED FOR CONSULT AND NPO AFTER MIDNIGHT. ALSO EGD IN AM. SUMAN DE LA CRUZ RN.
[2020-09-03 22:07] VITALS: BP 127/77
--- NOTE | 2020-09-03 22:13 | NUR ---
SPOKE WITH SON BIANCA AT THIS TIME WITH UPDATE.
[2020-09-03 22:59] VITALS: BP 112/88
[2020-09-04] VITALS (13 sets, daily range): BP systolic 100–155; BP diastolic 38–97
--- NOTE | 2020-09-04 01:18 | NUR ---
PT RESTING SITTING IN CHAIR IN ROOM, DENIES ANY COMPLAINTS AT THIS TIME, NO ACUTE DISTRESS NOTED, RN WILL CONTINUE TO MONITOR
--- NOTE | 2020-09-04 02:04 | NUR ---
PT RESTING IN BED WITH EYES OPEN, NO DISTRESS NOTED, RN WILL CONTINUE TO MONITOR
[2020-09-04 06:25] LABS: BASO % 0.3 % (0.0-1.0); EOS # 0.3 10*3/uL (0.0-0.4); HEMATOCRIT 35.9 % (37.0-47.0); LYMPH # 0.8 10*3/uL (1.3-4.4); LYMPH % 6.2 % (27.0-41.0); MEAN CELL VOLUME 102.9 fl (81.0-99.0); MEAN CORPUSCULAR HGB 32.7 pg (27.0-31.0); MEAN CORPUSCULAR HGB CONC 31.8 g/dl (33.0-37.0); MEAN PLATELET VOLUME 9.8 fl (9.6-12.3); MONO % 7.8 % (3.0-9.0); NEUT # 10.7 10*3/uL (2.3-7.9); NEUT % 82.9 % (47.0-73.0); PLATELET COUNT AUTOMATED 222 10*3/uL (130-400); RED BLOOD COUNT 3.49 10*6/uL (4.10-5.10); RED CELL DISTRI WIDTH 17.1 % (0-14.5)
[2020-09-04 06:48] LABS: ALBUMIN 3.3 gm/dl (3.1-4.5); ALKALINE PHOSPHATASE 76 U/L (45-117); BUN 11 mg/dl (7-24); CHLORIDE 109 mmol/L (98-107); POTASSIUM 3.5 mmol/L (3.5-5.1); SGOT/AST 20 IU/L (3-35); SGPT/ALT 19 U/L (12-78); SODIUM 140 mmol/L (136-145); TOTAL PROTEIN 6.1 gm/dL (6.4-8.2)
--- NOTE | 2020-09-04 10:48 | NUR ---
STILL NO ADMISSION BED FOR THIS PT.ALSO,I NOTIFIED SURGERY DEPT AND THEY ARE NOT SURE WHAT TIME SHE WILL HAVE HER ENDO. ---JOSEPHINE HORAN RN
--- NOTE | 2020-09-04 12:35 | NUR ---
pt voices no C/O AT THIS TIME.HER GRANDAUGHTER HAS BEEN ALLOWED IN THE ROOM TO SEE HER AND HELP HER. PT REMAINS NPO PER NURSE PRACTIONER JOSE---JOSEPHINE HORAN RN
--- NOTE | 2020-09-04 13:00 | NUR ---
REPORT TO KAYDEN BAUGH---JOSEPHINE HORAN RN
--- NOTE | 2020-09-04 14:30 | NUR ---
Mary Ellen DAVILA FROM SURGERY HERE TO TRANSPORT TO SURGERY, TELEPHONE REPORT ALSO GIVEN TO RAJNI ROBLEDO RN. BELONGINGS SENT WITH PT.
--- NOTE | 2020-09-04 16:30 | NUR ---
A 85, admitted to 5E, under the services of Dr. JIN ISLAS,SARTHAK Hyde with a diagnosis of GI BLEED. Chief complaint is GI BLEED . Patient arrived via bed from ER. Monitor applied. Initial assessment completed. Vital signs taken and recorded. DR. JIN ISLAS,SARTHAK Hyde notified of admission to the unit. Orders received. See assessment for past medical history, medications and allergies. Patient and/or family oriented to unit. [facility] visitation policy reviewed. Clothing/patient valuable form completed. HARDIK ROBLEDO
[2020-09-05 00:20] VITALS: BP 117/74
[2020-09-05 08:00] VITALS: BP 118/72
--- NOTE | 2020-09-05 09:00 | NUR ---
Closing Specialist in to talk to patient. Patient states lives at home alone with her son living nearby and her granddaughter helping. There are 30 steps in the home. 15 upstairs and 15 to the basement. Physician: Dr. Gloria Lara Pharmacy: [facility] Home health services: none Patient's level of ADLs: MINIMAL ASSIST Patient has working utilities: yes DME: walker Follow-up physician's appointment after d/c: she prefers to maker her own follow up appt after discharge Does patient want to access PORTAL?: no Discharge plan discussed with patient. She is [place] and states she lost one of her hearing aides a couple of weeks ago and the other one just makes everything sound different. She lives at home alone with her 2 sons living nearby. She states her granddaughter helps her also. She is independent in her ADLs and ambulates with a walker. She does her own house work. Discussed home health care services and she declines. CM will continue to follow for any discharge planning needs. When medically stable she will be discharged to home. She states her son will provide transportation on discharge. JOSE FISH
[2020-09-05 12:00] VITALS: BP 104/80
[2020-09-05 16:00] VITALS: BP 92/49
[2020-09-05 20:00] VITALS: BP 120/68
--- NOTE | 2020-09-05 20:26 | NUR ---
DR ABDI CALLED AND NOTIFIED OF PT NAUSEA AND EMESIS. ORDERS RECEIVED.
--- NOTE | 2020-09-05 20:47 | NUR ---
PT MEDICATED WITH ZOFRAN PO FOR C/O NAUSEA PER ORDERS. CALL LIGHT IN REACH. WILL MONITOR
--- NOTE | 2020-09-05 21:40 | NUR ---
MEDICATION EFFECTIVE PER PT. WILL MONITOR
[2020-09-06] VITALS (7 sets, daily range): BP systolic 103–157; BP diastolic 51–73
--- NOTE | 2020-09-06 00:03 | NUR ---
PT RESTING IN CHAIR. NO DISTRESS NOTED. WILL MONITOR
[2020-09-06 07:55] LABS: BASO % 0.3 % (0.0-1.0); EOS # 0.3 10*3/uL (0.0-0.4); EOS % 3.1 % (1.0-4.0); HEMATOCRIT 33.8 % (37.0-47.0); LYMPH # 0.6 10*3/uL (1.3-4.4); LYMPH % 6.4 % (27.0-41.0); MEAN CELL VOLUME 103.4 fl (81.0-99.0); MEAN CORPUSCULAR HGB 32.4 pg (27.0-31.0); MEAN CORPUSCULAR HGB CONC 31.4 g/dl (33.0-37.0); MEAN PLATELET VOLUME 9.3 fl (9.6-12.3); MONO # 0.7 10*3/uL (0.1-1.0); MONO % 8.2 % (3.0-9.0); NEUT # 7.1 10*3/uL (2.3-7.9); NEUT % 81.2 % (47.0-73.0); PLATELET COUNT AUTOMATED 208 10*3/uL (130-400); RED BLOOD COUNT 3.27 10*6/uL (4.10-5.10); RED CELL DISTRI WIDTH 16.8 % (0-14.5); WHITE BLOOD COUNT 8.7 10*3/uL (4.8-10.8)
[2020-09-06 08:10] LABS: BUN 9 mg/dl (7-24); CHLORIDE 105 mmol/L (98-107); CREATININE 0.75 mg/dL (0.55-1.02); POTASSIUM 3.1 mmol/L (3.5-5.1); SODIUM 138 mmol/L (136-145)
--- NOTE | 2020-09-06 09:00 | NUR ---
CM in to see patient. No new needs or request at this time. Discussed home health care services and she declines. CM will continue to follow for any discharge planning needs. When medically stable she will be discharged to home.
--- NOTE | 2020-09-06 20:55 | NUR ---
PT SITTING UP IN BED. NO C/O AT THIS TIME. RESP-EASY AND REGULAR. OXYGEN IN USE. CALL LIGHT IN REACH. SEE SHIFT ASSESSMENT.
[2020-09-07] VITALS: BP 104/54
--- NOTE | 2020-09-07 00:20 | NUR ---
PT SLEEPING IN BED. RESP-EASY AND REGULAR. OXYGEN IN USE. CALL LIGHT IN REACH. SEE SHIFT ASSESSMENT.
--- NOTE | 2020-09-07 05:50 | NUR ---
PT SITTING UP IN RECLINER CHAIR. NO C/O AT THIS TIME. TOLERATED ROUTINE IV MED. CALL LIGHT IN REACH.
[2020-09-07 06:54] LABS: BASO % 0.3 % (0.0-1.0); EOS # 0.2 10*3/uL (0.0-0.4); EOS % 3.4 % (1.0-4.0); HEMATOCRIT 31.7 % (37.0-47.0); LYMPH # 0.5 10*3/uL (1.3-4.4); LYMPH % 7.2 % (27.0-41.0); MEAN CELL VOLUME 103.9 fl (81.0-99.0); MEAN CORPUSCULAR HGB 32.8 pg (27.0-31.0); MEAN CORPUSCULAR HGB CONC 31.5 g/dl (33.0-37.0); MEAN PLATELET VOLUME 9.8 fl (9.6-12.3); MONO # 0.7 10*3/uL (0.1-1.0); MONO % 9.7 % (3.0-9.0); NEUT # 5.6 10*3/uL (2.3-7.9); NEUT % 78.8 % (47.0-73.0); PLATELET COUNT AUTOMATED 206 10*3/uL (130-400); RED BLOOD COUNT 3.05 10*6/uL (4.10-5.10); RED CELL DISTRI WIDTH 16.5 % (0-14.5); WHITE BLOOD COUNT 7.1 10*3/uL (4.8-10.8)
[2020-09-07 08:00] VITALS: BP 102/59
[2020-09-07 12:00] VITALS: BP 113/64
[2020-09-07 16:00] VITALS: BP 91/76
[2020-09-07 20:00] VITALS: BP 130/62
[2020-09-08] VITALS: BP 108/69
--- NOTE | 2020-09-08 | NUR ---
PT SLEEPING. RESPIRATIONS UNLABORED, CALL LIGHT IN REACH.
--- NOTE | 2020-09-08 06:38 | NUR ---
PT RESTING IN BED. RESPIRATIONS EASY AND UNLABORED ON 2.5 L NC. NO COMPLAINTS VOICED BY PT. MEDS TAKEN WITH EASE. CALL LIGHT IN REACH.
[2020-09-08 06:39] LABS: BASO % 0.2 % (0.0-1.0); EOS % 0.1 % (1.0-4.0); HEMATOCRIT 29.4 % (37.0-47.0); LYMPH # 0.6 10*3/uL (1.3-4.4); LYMPH % 4.8 % (27.0-41.0); MEAN CORPUSCULAR HGB CONC 31.6 g/dl (33.0-37.0); MEAN PLATELET VOLUME 9.8 fl (9.6-12.3); MONO % 8.4 % (3.0-9.0); NEUT # 10.3 10*3/uL (2.3-7.9); PLATELET COUNT AUTOMATED 233 10*3/uL (130-400); RED BLOOD COUNT 2.91 10*6/uL (4.10-5.10); RED CELL DISTRI WIDTH 16.2 % (0-14.5)
[2020-09-08 08:00] VITALS: BP 122/80; BP 123/99
--- NOTE | 2020-09-08 09:15 | NUR ---
24 HR chart check completed.
--- NOTE | 2020-09-08 10:00 | NUR ---
SITTING IN RECLINER WITH NO ACUTE DISTRESS NOTED. RESPIRATIONS EASY. LUNGS DIMINISHED WITH EXP WHEEZES. PULSE OX 98% RA, O2 PRESENT AT BEDSIDE FOR PRN USE. DENIES SOB. CALL LIGHT WITHIN REACH. NO VOICED COMPLAINTS
--- NOTE | 2020-09-08 10:37 | NUR ---
MOM PROVIDED FOR C/O CONSITPATION. KIM ALSO GIVEN
[2020-09-08 12:00] VITALS: BP 115/66
--- NOTE | 2020-09-08 15:00 | NUR ---
REMAINS IN RECLINER WITH NO DISTRESS NOTED. RESPIRATIONS EASY. CALL LIGHT WITHIN REACH. NO VOICED COMPLAINTS
[2020-09-08 16:00] VITALS: BP 106/65
[2020-09-08 20:00] VITALS: BP 143/69
--- NOTE | 2020-09-08 21:27 | NUR ---
PATIENT GIVEN CEPACOL PER REQUEST. WILL MONITOR
[2020-09-09] VITALS: BP 155/111
[2020-09-09] MEDS ORDERED: NEBULIZER NEB (08:29)
[2020-09-09] MEDS ORDERED: Ipratropium Brom3 ML INH (08:30)
--- NOTE | 2020-09-09 09:00 | NUR ---
CM in to see patient. She is sitting up in her bedside recliner. Discussed home health care services and she declines. No new needs or request at this time. CM will continue to follow for any discharge planning needs. When medically stable she will be discharged to home. She states she had some trouble breathing this morning so Dr. Lara told her she may be able to be discharged tomorrow.
[2020-09-09 12:00] VITALS: BP 126/52
--- NOTE | 2020-09-09 14:56 | NUR ---
DR. FLORES NOTIFIED OF CONSULT
[2020-09-09 16:00] VITALS: BP 128/61
[2020-09-09 20:00] VITALS: BP 145/64
[2020-09-09 23:34] VITALS: BP 116/85
--- NOTE | 2020-09-10 08:00 | NUR ---
SITTING UP IN CHAIR. PLEASANT/COOPERATIVE. ASSESSMENT COMPLETE SEE FLOWSHEET. NO C/O VOICED. CALL LIGHT IN REACH.
--- NOTE | 2020-09-10 09:00 | NUR ---
CM in to see patient. No new needs or request at this time. Discussed short term rehab and home health care services and she declines. CM will continue to follow for any discharge planning needs. When medically stable she will be discharged to home. Discussed discharge planning with Dr. Jose. Patient has a pneumonia and Dr. Be has been consulted.
[2020-09-10 12:00] VITALS: BP 138/65
[2020-09-10 16:00] VITALS: BP 137/69
[2020-09-10 20:00] VITALS: BP 134/80
[2020-09-11] VITALS: BP 147/72
[2020-09-11 06:45] LABS: HEMATOCRIT 32.4 % (37.0-47.0); MEAN CELL VOLUME 100.6 fl (81.0-99.0); MEAN CORPUSCULAR HGB CONC 31.8 g/dl (33.0-37.0); MEAN PLATELET VOLUME 9.1 fl (9.6-12.3); NUCLEATED RED BLOOD CELL 0.1 10*3/uL (0.0-0.0); NUCLEATED RED BLOOD CELL 0.3 % (0.0-0.0); PLATELET COUNT AUTOMATED 297 10*3/uL (130-400); RED BLOOD COUNT 3.22 10*6/uL (4.10-5.10); RED CELL DISTRI WIDTH 16.4 % (0-14.5); WHITE BLOOD COUNT 14.9 10*3/uL (4.8-10.8)
[2020-09-11 08:00] VITALS: BP 141/97
[2020-09-11 08:24] LABS: PLATELET SUFFICIENCY NORMAL (NORMAL); TOTAL CELLS COUNTED 100 #CELLS
--- NOTE | 2020-09-11 09:00 | NUR ---
CM in to see patient. She is sitting up in her bedside recliner. No new needs or request at this time. Discussed short term rehab and home health care services and she declines. CM will continue to follow for any discharge planning needs. When medically stable she will be discharged to home.
--- NOTE | 2020-09-11 09:00 | NUR ---
Patient resting quietly with no c/o discomfort. Respirations easy and regular. Vital signs stable. No overt distress. JOSE RAMOS R
[2020-09-11 12:00] VITALS: BP 128/63
--- NOTE | 2020-09-11 15:35 | NUR ---
PT REQUESTED AND WAS MEDICATED WITH MILK OF MAG. ILL MONITOR
[2020-09-11 16:04] VITALS: BP 136/69
[2020-09-11 20:00] VITALS: BP 101/70; BP 143/78
--- NOTE | 2020-09-11 20:00 | NUR ---
SITTING IN RECLINER, NO ACUTE DISTRESS NOTED. RESPIRATIONS EASY. LUNGS DIMINISHED WITH EXP WHEEZES. PULSE OX 95% RA. CLAIMS COUGH PROD FOR YELLOW, IMPROVING. CALL LIGHT WITHIN REACH. NO VOICED COMPLAINTS
--- NOTE | 2020-09-11 20:10 | NUR ---
24 HR chart check completed.
[2020-09-12] VITALS: BP 132/70
--- NOTE | 2020-09-12 | NUR ---
SLEEPING. NO DISTRESS NOTED. RESPIRATIONS EASY. PULSE OX 98% 2L. CALL LIGHT WITHIN REACH
--- NOTE | 2020-09-12 06:00 | NUR ---
RESTED THROUGHOUT NIGHT WITH NO DISTRESS NOTED. RESPIRATIONS EASY. CALL LIGHT WITHIN REACH. NO VOICED COMPLAINTS THIS SHIFT
[2020-09-12 08:00] VITALS: BP 154/71
--- NOTE | 2020-09-12 08:00 | NUR ---
Patient resting quietly with no c/o discomfort. Respirations easy and regular. Vital signs stable. No overt distress. JOSE RAMOS R
[2020-09-12] MEDS ORDERED: AUGMENTIN 875-875 MG PO (09:47)
[2020-09-12] MEDS ORDERED: MEDROL DOSEPAK4 MG PO (09:47)
[2020-09-12] MEDS ORDERED: OMEPRAZOLE20 M2 PO (09:56)
--- NOTE | 2020-09-12 11:01 | NUR ---
Discharge instructions reviewed with patient/family. Patient receptive and verbalizes understanding. Follow-up care arranged. Written instructions given to patient/family. JOSE RAMOS
== END 2020-09-12 11:10 | disposition home or self-care (01) | DRG 368 ==
LOC: ED 16:03 → 5E 18:07 → EDHOLD 18:07 → 5E 09-04 13:57
PROVIDERS: Nurse Practitioner; ADMIT Internal Medicine; ATTEND Internal Medicine
PROC: 0DB68ZX Excision of Stomach, Via Natural or Artificial Opening Endoscopic, Diagnostic (ICD-10-PCS; principal; 2020-09-04)
PROC: 0DJD8ZZ Inspection of Lower Intestinal Tract, Via Natural or Artificial Opening Endoscopic (ICD-10-PCS; 2020-09-06)
DX: K21.01 Gastro-esophageal reflux disease with esophagitis, with bleeding (principal); K29.71 Gastritis, unspecified, with bleeding; J18.9 Pneumonia, unspecified organism; J96.20 Acute and chronic respiratory failure, unspecified whether with hypoxia or hypercapnia; K57.31 Diverticulosis of large intestine without perforation or abscess with bleeding; K29.81 Duodenitis with bleeding; S32.000A Wedge compression fracture of unspecified lumbar vertebra, initial encounter for closed fracture; D62 Acute posthemorrhagic anemia; J44.1 Chronic obstructive pulmonary disease with (acute) exacerbation; J44.0 Chronic obstructive pulmonary disease with (acute) lower respiratory infection; J45.901 Unspecified asthma with (acute) exacerbation; K56.699 Other intestinal obstruction unspecified as to partial versus complete obstruction; F33.1 Major depressive disorder, recurrent, moderate; G25.81 Restless legs syndrome; K44.9 Diaphragmatic hernia without obstruction or gangrene; D50.9 Iron deficiency anemia, unspecified; E87.6 Hypokalemia; Z86.73 Personal history of transient ischemic attack (TIA), and cerebral infarction without residual deficits; Z88.1 Allergy status to other antibiotic agents; Z88.8 Allergy status to other drugs, medicaments and biological substances; Z82.49 Family history of ischemic heart disease and other diseases of the circulatory system; Z83.3 Family history of diabetes mellitus; Z80.9 Family history of malignant neoplasm, unspecified; Z90.710 Acquired absence of both cervix and uterus

== ENCOUNTER 2021-01-16 14:47 | Emergency (ER) | payer MEDICARE ==
[~2021-01-16] VITALS: Ht 152.4 cm; Wt 44.9 kg
[~2021-01-16 14:47] MED LIST changes: +Ipratropium Brom3 ML INH; +MEDROL DOSEPAK4 MG PO; +NEBULIZER NEB; +OMEPRAZOLE20 M2 PO
[2021-01-16 14:54] VITALS: BP 124/65
[2021-01-16] MEDS ORDERED: HYDROCODONE-AC1 EAC1 PO (16:49)
== END 2021-01-16 17:09 | disposition home or self-care (01) ==
LOC: ED 14:47
DX: M54.5 Low back pain (principal); K21.9 Gastro-esophageal reflux disease without esophagitis; F41.9 Anxiety disorder, unspecified; F32.9 Major depressive disorder, single episode, unspecified; Z88.8 Allergy status to other drugs, medicaments and biological substances; Z79.899 Other long term (current) drug therapy; Z88.1 Allergy status to other antibiotic agents; Z90.711 Acquired absence of uterus with remaining cervical stump; Z98.890 Other specified postprocedural states; W19.XXXA Unspecified fall, initial encounter; Y93.89 Activity, other specified; Y92.89 Other specified places as the place of occurrence of the external cause; Y99.8 Other external cause status

== ENCOUNTER 2021-02-01 09:10 | Inpatient (IN) | payer MEDICARE ==
[~2021-02-01] VITALS: Ht 149.8 cm; Wt 44.0 kg
[~2021-02-01 09:10] MED LIST changes: +HYDROCODONE-AC1 EAC1 PO
[2021-02-01 09:23] VITALS: BP 123/109
[2021-02-01 09:49] LABS: BASO # 0.1 10*3/uL (0.0-0.1); BASO % 0.3 % (0.0-1.0); EOS # 0.3 10*3/uL (0.0-0.4); EOS % 1.4 % (1.0-4.0); HEMATOCRIT 36.2 % (37.0-47.0); LYMPH # 0.6 10*3/uL (1.3-4.4); LYMPH % 3.3 % (27.0-41.0); MEAN CELL VOLUME 93.8 fl (81.0-99.0); MEAN CORPUSCULAR HGB 29.5 pg (27.0-31.0); MEAN CORPUSCULAR HGB CONC 31.5 g/dl (33.0-37.0); MEAN PLATELET VOLUME 9.5 fl (9.6-12.3); MONO % 5.2 % (3.0-9.0); NEUT # 16.7 10*3/uL (2.3-7.9); NEUT % 89.3 % (47.0-73.0); PLATELET COUNT AUTOMATED 312 10*3/uL (130-400); RED BLOOD COUNT 3.86 10*6/uL (4.10-5.10); RED CELL DISTRI WIDTH 17.2 % (0-14.5); RETICULOCYTE % 1.22 % (0.50-2.50); WHITE BLOOD COUNT 18.7 10*3/uL (4.8-10.8)
[2021-02-01 09:59] LABS: ACT PARTIAL THROMBO TIME 25.2 SECONDS (20.0-32.1)
[2021-02-01 10:06] LABS: ALBUMIN 3.4 gm/dl (3.1-4.5); ALKALINE PHOSPHATASE 119 U/L (45-117); BUN 22 mg/dl (7-24); CHLORIDE 105 mmol/L (98-107); CREATININE 0.82 mg/dL (0.55-1.02); IRON 52 ug/dL (50-170); POTASSIUM 4.2 mmol/L (3.5-5.1); SGOT/AST 16 IU/L (3-35); SGPT/ALT 15 U/L (12-78); SODIUM 137 mmol/L (136-145); TOTAL IRON BINDING CAPACITY 351 ug/dl (250-450); TOTAL PROTEIN 6.7 gm/dL (6.4-8.2)
[2021-02-01 10:10] LABS: TROPONIN I < 0.015 ng/ml (<0.045)
[2021-02-01 11:20] VITALS: BP 124/88
[2021-02-01 11:25] VITALS: BP 125/70
[2021-02-01] MEDS ORDERED: ALEVE220 MG PO (12:16)
[2021-02-01 15:31] LABS: HEMATOCRIT 30.1 % (37.0-47.0)
[2021-02-01 16:00] VITALS: BP 109/45
[2021-02-01 20:00] VITALS: BP 119/58
[2021-02-01 23:35] VITALS: BP 122/72
[2021-02-02 04:00] VITALS: BP 126/68
[2021-02-02 04:58] LABS: CHLORIDE 112 mmol/L (98-107); CREATININE 0.89 mg/dL (0.55-1.02); POTASSIUM 4.1 mmol/L (3.5-5.1); SODIUM 141 mmol/L (136-145)
[2021-02-02 05:00] LABS: BUN 12 mg/dl (7-24)
[2021-02-02 06:02] LABS: BASO % 0.3 % (0.0-1.0); EOS # 0.4 10*3/uL (0.0-0.4); EOS % 3.2 % (1.0-4.0); HEMATOCRIT 29.8 % (37.0-47.0); LYMPH # 0.7 10*3/uL (1.3-4.4); LYMPH % 6.2 % (27.0-41.0); MEAN CELL VOLUME 96.4 fl (81.0-99.0); MEAN CORPUSCULAR HGB 29.4 pg (27.0-31.0); MEAN CORPUSCULAR HGB CONC 30.5 g/dl (33.0-37.0); MEAN PLATELET VOLUME 9.6 fl (9.6-12.3); MONO # 0.6 10*3/uL (0.1-1.0); MONO % 5.6 % (3.0-9.0); NEUT # 9.3 10*3/uL (2.3-7.9); NEUT % 84.2 % (47.0-73.0); PLATELET COUNT AUTOMATED 248 10*3/uL (130-400); RED BLOOD COUNT 3.09 10*6/uL (4.10-5.10); RED CELL DISTRI WIDTH 17.4 % (0-14.5); WHITE BLOOD COUNT 11.1 10*3/uL (4.8-10.8)
[2021-02-02 08:00] VITALS: BP 112/60
[2021-02-02 12:00] VITALS: BP 115/63
[2021-02-02 16:06] VITALS: BP 121/62
[2021-02-02 16:08] LABS: HEMATOCRIT 28.5 % (37.0-47.0)
[2021-02-02 20:00] VITALS: BP 140/60
[2021-02-03] VITALS: BP 139/67
[2021-02-03 07:15] LABS: BASO % 0.2 % (0.0-1.0); EOS # 0.3 10*3/uL (0.0-0.4); EOS % 2.4 % (1.0-4.0); LYMPH # 0.7 10*3/uL (1.3-4.4); LYMPH % 6.8 % (27.0-41.0); MEAN CELL VOLUME 95.8 fl (81.0-99.0); MEAN CORPUSCULAR HGB 31.3 pg (27.0-31.0); MEAN CORPUSCULAR HGB CONC 32.7 g/dl (33.0-37.0); MEAN PLATELET VOLUME 9.4 fl (9.6-12.3); MONO # 0.6 10*3/uL (0.1-1.0); MONO % 5.9 % (3.0-9.0); NEUT # 8.8 10*3/uL (2.3-7.9); NEUT % 84.1 % (47.0-73.0); PLATELET COUNT AUTOMATED 264 10*3/uL (130-400); RED BLOOD COUNT 3.13 10*6/uL (4.10-5.10); RED CELL DISTRI WIDTH 17.5 % (0-14.5); WHITE BLOOD COUNT 10.4 10*3/uL (4.8-10.8)
[2021-02-03 07:33] LABS: CHLORIDE 105 mmol/L (98-107); POTASSIUM 3.6 mmol/L (3.5-5.1); SODIUM 136 mmol/L (136-145)
[2021-02-03 07:37] LABS: BUN 7 mg/dl (7-24); CREATININE 0.65 mg/dL (0.55-1.02)
[2021-02-03 07:38] VITALS: BP 125/71
[2021-02-03 12:00] VITALS: BP 130/48
[2021-02-03] MEDS ORDERED: NEURONTIN300 MG PO (14:14)
[2021-02-03 16:00] VITALS: BP 125/52
[2021-02-03 20:00] VITALS: BP 112/54
[2021-02-04] VITALS (9 sets, daily range): BP systolic 116–160; BP diastolic 55–87
[2021-02-04 06:50] LABS: BASO % 0.2 % (0.0-1.0); EOS # 0.3 10*3/uL (0.0-0.4); EOS % 4.8 % (1.0-4.0); HEMATOCRIT 27.6 % (37.0-47.0); LYMPH # 0.6 10*3/uL (1.3-4.4); LYMPH % 9.6 % (27.0-41.0); MEAN CELL VOLUME 95.8 fl (81.0-99.0); MEAN CORPUSCULAR HGB 29.5 pg (27.0-31.0); MEAN CORPUSCULAR HGB CONC 30.8 g/dl (33.0-37.0); MEAN PLATELET VOLUME 9.4 fl (9.6-12.3); MONO # 0.6 10*3/uL (0.1-1.0); MONO % 10.1 % (3.0-9.0); NEUT # 4.7 10*3/uL (2.3-7.9); NEUT % 74.5 % (47.0-73.0); PLATELET COUNT AUTOMATED 211 10*3/uL (130-400); RED BLOOD COUNT 2.88 10*6/uL (4.10-5.10); RED CELL DISTRI WIDTH 17.2 % (0-14.5); WHITE BLOOD COUNT 6.3 10*3/uL (4.8-10.8)
[2021-02-04 07:17] LABS: BUN 7 mg/dl (7-24); CHLORIDE 111 mmol/L (98-107); CREATININE 0.73 mg/dL (0.55-1.02); POTASSIUM 3.4 mmol/L (3.5-5.1); SODIUM 141 mmol/L (136-145)
[2021-02-05] VITALS: BP 141/58
[2021-02-05 00:10] LABS: BILIRUBIN Negative (Negative); BLOOD 1+ (Negative); CLARITY Clear (Clear); COLOR Yellow (Yellow); GLUCOSE Trace (Negative); KETONE 1+ (Negative); LEUKO ESTERASE Negative (Negative); NITRITE Negative (Negative); UROBILINOGEN 0.2 E.U./dl (0.0-1.0)
[2021-02-05 00:26] LABS: BACTERIA TRACE
[2021-02-05 08:00] VITALS: BP 159/72
== END 2021-02-05 11:22 | disposition home or self-care (01) | DRG 378 ==
LOC: ED 09:10 → EDHOLD 10:25 → 5E 10:25 → ICCU 11:12 → 5E 02-02 17:26
PROVIDERS: Emergency Medicine; Internal Medicine Gastroenterology; ADMIT Internal Medicine; ATTEND Internal Medicine
PROC: 0DB68ZX Excision of Stomach, Via Natural or Artificial Opening Endoscopic, Diagnostic (ICD-10-PCS; principal; 2021-02-04)
DX: K29.71 Gastritis, unspecified, with bleeding (principal); N39.0 Urinary tract infection, site not specified; F33.8 Other recurrent depressive disorders; D62 Acute posthemorrhagic anemia; E44.0 Moderate protein-calorie malnutrition; M19.90 Unspecified osteoarthritis, unspecified site; J43.2 Centrilobular emphysema; K44.9 Diaphragmatic hernia without obstruction or gangrene; R26.2 Difficulty in walking, not elsewhere classified; M47.896 Other spondylosis, lumbar region; E87.6 Hypokalemia; K21.9 Gastro-esophageal reflux disease without esophagitis; G25.81 Restless legs syndrome; Z88.8 Allergy status to other drugs, medicaments and biological substances

== ENCOUNTER 2021-03-29 19:07 | Emergency (ER) | payer MEDICARE ==
[~2021-03-29] VITALS: Ht 149.8 cm; Wt 40.8 kg
[~2021-03-29 19:07] MED LIST changes: +ALEVE220 MG PO
[2021-03-29 19:12] VITALS: BP 121/66
[2021-03-29] MEDS ORDERED: NAPROXEN250 MG PO (20:36)
== END 2021-03-29 20:54 | disposition home or self-care (01) ==
LOC: ED 19:07
DX: M25.562 Pain in left knee (principal); M79.89 Other specified soft tissue disorders; M19.90 Unspecified osteoarthritis, unspecified site; Z88.1 Allergy status to other antibiotic agents; Z88.8 Allergy status to other drugs, medicaments and biological substances; Z88.4 Allergy status to anesthetic agent; Z79.899 Other long term (current) drug therapy; Z90.711 Acquired absence of uterus with remaining cervical stump; Z90.722 Acquired absence of ovaries, bilateral

== ENCOUNTER 2021-04-04 01:46 | Inpatient (IN) | payer MEDICARE ==
[~2021-04-04] VITALS: Ht 149.9 cm; Wt 40.9 kg
[2021-04-04] VITALS (8 sets, daily range): BP systolic 108–142; BP diastolic 48–74
[~2021-04-04 01:46] MED LIST changes: +NAPROXEN250 MG PO
[2021-04-04 02:47] LABS: BASO % 0.2 % (0.0-1.0); EOS # 0.1 10*3/uL (0.0-0.4); EOS % 1.3 % (1.0-4.0); HEMATOCRIT 36.7 % (37.0-47.0); LYMPH # 0.5 10*3/uL (1.3-4.4); MEAN CELL VOLUME 95.3 fl (81.0-99.0); MEAN CORPUSCULAR HGB 29.1 pg (27.0-31.0); MEAN CORPUSCULAR HGB CONC 30.5 g/dl (33.0-37.0); MEAN PLATELET VOLUME 8.8 fl (9.6-12.3); MONO # 0.6 10*3/uL (0.1-1.0); MONO % 5.6 % (3.0-9.0); NEUT # 9.1 10*3/uL (2.3-7.9); NEUT % 87.4 % (47.0-73.0); PLATELET COUNT AUTOMATED 278 10*3/uL (130-400); RED BLOOD COUNT 3.85 10*6/uL (4.10-5.10); RED CELL DISTRI WIDTH 20.2 % (0-14.5); WHITE BLOOD COUNT 10.4 10*3/uL (4.8-10.8)
[2021-04-04 03:05] LABS: ALBUMIN 2.9 gm/dl (3.1-4.5); ALKALINE PHOSPHATASE 105 U/L (45-117); BUN 11 mg/dl (7-24); CHLORIDE 105 mmol/L (98-107); CREATININE 0.69 mg/dL (0.55-1.02); LIPASE 62 U/L (73-393); POTASSIUM 3.2 mmol/L (3.5-5.1); SGOT/AST 15 IU/L (3-35); SGPT/ALT 15 U/L (12-78); SODIUM 139 mmol/L (136-145); TOTAL PROTEIN 6.2 gm/dL (6.4-8.2)
[2021-04-04 03:53] LABS: BILIRUBIN Negative (Negative); BLOOD Negative (Negative); CLARITY Clear (Clear); COLOR Yellow (Yellow); GLUCOSE Trace (Negative); KETONE Trace (Negative); LEUKO ESTERASE Negative (Negative); NITRITE Negative (Negative)
[2021-04-04 04:09] LABS: BACTERIA TRACE; MUCOUS 1+
[2021-04-04] MEDS ORDERED: BAYER ASPIRIN C81 MG PO (06:29)
[2021-04-05] VITALS: BP 122/39
[2021-04-05 05:58] LABS: BASO % 0.3 % (0.0-1.0); EOS # 0.2 10*3/uL (0.0-0.4); EOS % 2.9 % (1.0-4.0); LYMPH # 0.7 10*3/uL (1.3-4.4); LYMPH % 9.2 % (27.0-41.0); MEAN CELL VOLUME 97.6 fl (81.0-99.0); MEAN CORPUSCULAR HGB 29.3 pg (27.0-31.0); MEAN PLATELET VOLUME 9.4 fl (9.6-12.3); MONO # 0.5 10*3/uL (0.1-1.0); MONO % 6.6 % (3.0-9.0); NEUT % 80.2 % (47.0-73.0); PLATELET COUNT AUTOMATED 248 10*3/uL (130-400); RED BLOOD COUNT 3.28 10*6/uL (4.10-5.10); RED CELL DISTRI WIDTH 19.8 % (0-14.5); WHITE BLOOD COUNT 7.5 10*3/uL (4.8-10.8)
[2021-04-05 06:11] LABS: BUN 11 mg/dl (7-24); CHLORIDE 109 mmol/L (98-107); CREATININE 0.59 mg/dL (0.55-1.02)
[2021-04-05 06:17] LABS: SODIUM 136 mmol/L (136-145)
[2021-04-05 06:22] LABS: POTASSIUM 4.4 mmol/L (3.5-5.1)
[2021-04-05 08:51] VITALS: BP 136/65
[2021-04-05 12:21] VITALS: BP 128/63
[2021-04-05 16:06] VITALS: BP 111/77
[2021-04-05 20:10] VITALS: BP 153/54
[2021-04-06] VITALS: BP 121/89
[2021-04-06 07:56] VITALS: BP 136/59
== END 2021-04-06 09:00 | disposition home health service (06) | DRG 389 ==
LOC: ED 01:46 → EDHOLD 05:07 → 4E 05:07 → EDHOLD 05:07 → 4E 05:21
PROVIDERS: Emergency Medicine; ADMIT Internal Medicine; ATTEND Internal Medicine
DX: K56.600 Partial intestinal obstruction, unspecified as to cause (principal); F33.1 Major depressive disorder, recurrent, moderate; E44.1 Mild protein-calorie malnutrition; F41.1 Generalized anxiety disorder; G89.29 Other chronic pain; J44.9 Chronic obstructive pulmonary disease, unspecified; M47.816 Spondylosis without myelopathy or radiculopathy, lumbar region; K21.00 Gastro-esophageal reflux disease with esophagitis, without bleeding; E16.2 Hypoglycemia, unspecified; G25.81 Restless legs syndrome; I10 Essential (primary) hypertension; Z91.81 History of falling; Z87.01 Personal history of pneumonia (recurrent); Z87.440 Personal history of urinary (tract) infections; Z90.710 Acquired absence of both cervix and uterus; Z98.42 Cataract extraction status, left eye; Z83.3 Family history of diabetes mellitus; Z82.49 Family history of ischemic heart disease and other diseases of the circulatory system; Z80.8 Family history of malignant neoplasm of other organs or systems; Z88.1 Allergy status to other antibiotic agents; Z88.8 Allergy status to other drugs, medicaments and biological substances; Z88.4 Allergy status to anesthetic agent

== ENCOUNTER → 2021-09-02 | Outpatient (CLI) | payer MEDICARE ==
[~2021-09-02] MED LIST changes: +BAYER ASPIRIN C81 MG PO
== END | disposition home or self-care (01) ==
LOC: CARD 11:50
PROVIDERS: ATTEND Internal Medicine
DX: I65.23 Occlusion and stenosis of bilateral carotid arteries (principal); I08.0 Rheumatic disorders of both mitral and aortic valves; R06.02 Shortness of breath

== ENCOUNTER 2021-12-20 16:29 | Observation (INO) | payer MEDICARE ==
[~2021-12-20] VITALS: Ht 149.8 cm
[2021-12-20 16:49] VITALS: BP 159/80
[2021-12-20 21:16] VITALS: BP 146/76
[2021-12-20 22:40] VITALS: BP 156/77
[2021-12-20] MEDS ORDERED: CLOPIDOGREL75 MG PO (23:58)
[2021-12-21] MEDS ORDERED: BUDESONIDE-FO10.2 GM INH (00:04)
[2021-12-21] MEDS ORDERED: Ipratropium Brom3 ML INH (00:04)
[2021-12-21 04:00] VITALS: BP 147/71
[2021-12-21 08:00] VITALS: BP 113/70
[2021-12-21 12:00] VITALS: BP 128/88
== END 2021-12-21 13:38 | disposition home or self-care (01) ==
LOC: ED 16:29 → EDHOLD 21:48 → ED 21:48 → EDHOLD 21:51 → 5E 22:21
PROVIDERS: ADMIT Internal Medicine; ATTEND Internal Medicine
DX: S00.83XA Contusion of other part of head, initial encounter (principal); W18.39XA Other fall on same level, initial encounter; Y92.89 Other specified places as the place of occurrence of the external cause; Y93.89 Activity, other specified; Y99.8 Other external cause status

== ENCOUNTER → 2022-01-12 | Outpatient (CLI) | payer MEDICARE ==
[~2022-01-12] MED LIST changes: +BUDESONIDE-FO10.2 GM INH; +CLOPIDOGREL75 MG PO
[2022-01-12 15:38] LABS: BASO % 0.4 % (0.0-1.0); EOS # 0.4 10*3/uL (0.0-0.4); EOS % 4.1 % (1.0-4.0); LYMPH # 1.1 10*3/uL (1.3-4.4); LYMPH % 10.3 % (27.0-41.0); MEAN CELL VOLUME 97.3 fl (81.0-99.0); MEAN CORPUSCULAR HGB 30.5 pg (27.0-31.0); MEAN CORPUSCULAR HGB CONC 31.4 g/dl (33.0-37.0); MEAN PLATELET VOLUME 9.1 fl (9.6-12.3); MONO # 1.2 10*3/uL (0.1-1.0); MONO % 11.5 % (3.0-9.0); NEUT # 7.5 10*3/uL (2.3-7.9); NEUT % 73.2 % (47.0-73.0); PLATELET COUNT AUTOMATED 305 10*3/uL (130-400); RED CELL DISTRI WIDTH 18.2 % (0-14.5); WHITE BLOOD COUNT 10.3 10*3/uL (4.8-10.8)
[2022-01-12 17:06] LABS: BODY FLUID WBC 8347 /uL
[2022-01-12 19:03] LABS: BF LYMPHOCYTES 14 %; BF NEUTROPHILS 86 %
[2022-01-13 13:05] LABS: ACID FAST SPEC PROCESSING Direct Inoculation (.)
== END | disposition home or self-care (01) ==
LOC: LAB 15:06
PROVIDERS: ATTEND Orthopaedic Surgery
DX: M25.462 Effusion, left knee (principal)

== ENCOUNTER → 2022-01-26 | Outpatient (CLI) | payer MEDICARE | END | disposition home or self-care (01) | LOC: NM 09:57 | PROVIDERS: ATTEND Orthopaedic Surgery | DX: M11.262 Other chondrocalcinosis, left knee (principal); M23.92 Unspecified internal derangement of left knee; M25.462 Effusion, left knee; M25.552 Pain in left hip ==

== ENCOUNTER → 2022-02-27 | Outpatient (CLI) | payer MEDICARE | END | disposition home or self-care (01) | LOC: CT 02-04 10:00 | PROVIDERS: ATTEND Internal Medicine Critical Care Medicine | DX: J98.11 Atelectasis (principal); R91.8 Other nonspecific abnormal finding of lung field; K44.9 Diaphragmatic hernia without obstruction or gangrene ==

== ENCOUNTER 2022-03-08 09:00 | Inpatient (IN) | payer MEDICARE ==
[~2022-03-08] VITALS: Ht 373.3 cm; Wt 42.6 kg
[2022-03-08 09:25] LABS: MEAN CELL VOLUME 98.2 fl (81.0-99.0); MEAN CORPUSCULAR HGB 30.8 pg (27.0-31.0); MEAN CORPUSCULAR HGB CONC 31.4 g/dl (33.0-37.0); NUCLEATED RED BLOOD CELL 0.1 10*3/uL (0.0-0.0); NUCLEATED RED BLOOD CELL 0.2 % (0.0-0.0); PLATELET COUNT AUTOMATED 457 10*3/uL (130-400); RED BLOOD COUNT 4.38 10*6/uL (4.10-5.10); WHITE BLOOD COUNT 30.4 10*3/uL (4.8-10.8)
[2022-03-08 09:28] VITALS: BP 97/70
[2022-03-08 09:42] LABS: ALKALINE PHOSPHATASE 116 U/L (45-117); BUN 28 mg/dl (7-24); CHLORIDE 104 mmol/L (98-107); CREATININE 1.02 mg/dL (0.55-1.02); LIPASE 92 U/L (73-393); POTASSIUM 3.9 mmol/L (3.5-5.1); SGOT/AST 32 IU/L (3-35); SGPT/ALT 43 U/L (12-78); SODIUM 138 mmol/L (136-145); TOTAL PROTEIN 7.6 gm/dL (6.4-8.2)
[2022-03-08 09:44] LABS: ACT PARTIAL THROMBO TIME 21.2 SECONDS (20.0-32.1); INTERNATIONAL NORM RATIO 0.9 (2.0-3.5)
[2022-03-08 09:46] LABS: MANUAL DIFF REFLEX YES
[2022-03-08 09:48] LABS: PLATELET SUFFICIENCY HIGH (NORMAL); TOTAL CELLS COUNTED 100 #CELLS
[2022-03-08 13:03] LABS: BILIRUBIN Negative (Negative); BLOOD Negative (Negative); CLARITY Clear (Clear); COLOR Yellow (Yellow); GLUCOSE Negative (Negative); KETONE Negative (Negative); LEUKO ESTERASE Trace (Negative); NITRITE Negative (Negative); PH 6.5 (4.5-8.0); SPECIFIC GRAVITY 1.015 (1.001-1.030); UROBILINOGEN 0.2 E.U./dl (0.0-1.0)
[2022-03-08 13:18] LABS: BACTERIA TRACE
[2022-03-08 13:19] LABS: MUCOUS TRACE
[2022-03-08 16:50] VITALS: BP 123/67
[2022-03-08 17:03] VITALS: BP 122/65
[2022-03-08] MEDS ORDERED: PROVENTIL HFA6.7 GM INH (17:21)
[2022-03-08] MEDS ORDERED: SYMB80 INH (17:21)
[2022-03-08] MEDS ORDERED: TYLENOL325 M2 PO (17:22)
[2022-03-08] MEDS ORDERED: CENTRUM SILVER1 EACH PO (17:22)
[2022-03-08] MEDS ORDERED: B12 ACTIVE1000 MCG PO (17:23)
[2022-03-08 20:00] VITALS: BP 114/65
[2022-03-09] VITALS (9 sets, daily range): BP systolic 108–132; BP diastolic 48–73
[2022-03-09 06:20] LABS: CHLORIDE 108 mmol/L (98-107); CREATININE 0.84 mg/dL (0.55-1.02); POTASSIUM 3.5 mmol/L (3.5-5.1); SGOT/AST 22 IU/L (3-35); SGPT/ALT 24 U/L (12-78); SODIUM 140 mmol/L (136-145)
[2022-03-09 06:22] LABS: ALKALINE PHOSPHATASE 83 U/L (45-117); BUN 18 mg/dl (7-24); TOTAL PROTEIN 5.9 gm/dL (6.4-8.2)
[2022-03-09 06:31] LABS: HEMATOCRIT 35.2 % (37.0-47.0); MEAN CELL VOLUME 97.8 fl (81.0-99.0); MEAN CORPUSCULAR HGB 30.8 pg (27.0-31.0); MEAN CORPUSCULAR HGB CONC 31.5 g/dl (33.0-37.0); MEAN PLATELET VOLUME 8.9 fl (9.6-12.3); NUCLEATED RED BLOOD CELL 0.1 % (0.0-0.0); PLATELET COUNT AUTOMATED 328 10*3/uL (130-400); RED CELL DISTRI WIDTH 18.3 % (0-14.5); WHITE BLOOD COUNT 16.1 10*3/uL (4.8-10.8)
[2022-03-09 06:52] LABS: MANUAL DIFF REFLEX YES
[2022-03-09 07:25] LABS: OVALOCYTES FEW; PLATELET SUFFICIENCY NORMAL (NORMAL); POLYCHROMASIA SLIGHT; SCHISTOCYTES FEW; TOTAL CELLS COUNTED 100 #CELLS
[2022-03-10] VITALS: BP 123/58
[2022-03-10 06:13] LABS: ALKALINE PHOSPHATASE 86 U/L (45-117); BUN 9 mg/dl (7-24); CHLORIDE 107 mmol/L (98-107); CREATININE 0.76 mg/dL (0.55-1.02); POTASSIUM 4.1 mmol/L (3.5-5.1); SGOT/AST 21 IU/L (3-35); SGPT/ALT 24 U/L (12-78); SODIUM 136 mmol/L (136-145); TOTAL PROTEIN 5.9 gm/dL (6.4-8.2)
[2022-03-10 06:55] LABS: BASO % 0.3 % (0.0-1.0); EOS # 0.3 10*3/uL (0.0-0.4); EOS % 2.1 % (1.0-4.0); LYMPH # 0.6 10*3/uL (1.3-4.4); LYMPH % 4.1 % (27.0-41.0); MEAN CELL VOLUME 96.8 fl (81.0-99.0); MEAN CORPUSCULAR HGB 30.6 pg (27.0-31.0); MEAN CORPUSCULAR HGB CONC 31.7 g/dl (33.0-37.0); MEAN PLATELET VOLUME 8.9 fl (9.6-12.3); MONO # 0.9 10*3/uL (0.1-1.0); MONO % 6.4 % (3.0-9.0); NEUT # 11.9 10*3/uL (2.3-7.9); NEUT % 85.9 % (47.0-73.0); PLATELET COUNT AUTOMATED 243 10*3/uL (130-400); RED CELL DISTRI WIDTH 18.5 % (0-14.5); WHITE BLOOD COUNT 13.9 10*3/uL (4.8-10.8)
[2022-03-10 08:00] VITALS: BP 145/63
[2022-03-10 12:00] VITALS: BP 122/74
[2022-03-10 12:07] LABS: ACID FAST SPEC PROCESSING Concentration (.)
[2022-03-10 16:00] VITALS: BP 113/67
[2022-03-10 20:00] VITALS: BP 104/59
[2022-03-11] VITALS: BP 127/76
[2022-03-11 06:21] LABS: BASO % 0.2 % (0.0-1.0); EOS # 0.4 10*3/uL (0.0-0.4); EOS % 4.4 % (1.0-4.0); HEMATOCRIT 30.7 % (37.0-47.0); LYMPH # 0.6 10*3/uL (1.3-4.4); LYMPH % 5.7 % (27.0-41.0); MEAN CELL VOLUME 98.7 fl (81.0-99.0); MEAN CORPUSCULAR HGB 30.9 pg (27.0-31.0); MEAN CORPUSCULAR HGB CONC 31.3 g/dl (33.0-37.0); MEAN PLATELET VOLUME 9.5 fl (9.6-12.3); MONO # 0.8 10*3/uL (0.1-1.0); MONO % 8.4 % (3.0-9.0); NEUT # 7.8 10*3/uL (2.3-7.9); NEUT % 79.7 % (47.0-73.0); PLATELET COUNT AUTOMATED 229 10*3/uL (130-400); RED BLOOD COUNT 3.11 10*6/uL (4.10-5.10); RED CELL DISTRI WIDTH 18.3 % (0-14.5); WHITE BLOOD COUNT 9.7 10*3/uL (4.8-10.8)
[2022-03-11 06:37] LABS: BUN 6 mg/dl (7-24); CHLORIDE 107 mmol/L (98-107); CREATININE 0.72 mg/dL (0.55-1.02); POTASSIUM 3.3 mmol/L (3.5-5.1); SODIUM 136 mmol/L (136-145)
[2022-03-11 08:00] VITALS: BP 151/71
[2022-03-11 12:00] VITALS: BP 133/77
[2022-03-11 16:00] VITALS: BP 110/55
[2022-03-11 20:00] VITALS: BP 112/51
[2022-03-12] VITALS: BP 113/54
[2022-03-12 08:00] VITALS: BP 131/73
[2022-03-12 12:00] VITALS: BP 104/54
[2022-03-12 16:00] VITALS: BP 110/64
[2022-03-12 20:00] VITALS: BP 137/71
[2022-03-13] VITALS: BP 137/67
[2022-03-13 06:09] LABS: BASO % 0.3 % (0.0-1.0); EOS # 0.6 10*3/uL (0.0-0.4); EOS % 6.2 % (1.0-4.0); HEMATOCRIT 31.4 % (37.0-47.0); LYMPH # 0.7 10*3/uL (1.3-4.4); LYMPH % 7.9 % (27.0-41.0); MEAN CELL VOLUME 98.1 fl (81.0-99.0); MEAN CORPUSCULAR HGB 30.6 pg (27.0-31.0); MEAN CORPUSCULAR HGB CONC 31.2 g/dl (33.0-37.0); MEAN PLATELET VOLUME 9.3 fl (9.6-12.3); MONO # 0.9 10*3/uL (0.1-1.0); MONO % 10.2 % (3.0-9.0); NEUT # 6.7 10*3/uL (2.3-7.9); NEUT % 74.1 % (47.0-73.0); PLATELET COUNT AUTOMATED 233 10*3/uL (130-400)
[2022-03-13 06:22] LABS: BUN 4 mg/dl (7-24); CHLORIDE 107 mmol/L (98-107); POTASSIUM 3.8 mmol/L (3.5-5.1); SODIUM 137 mmol/L (136-145)
[2022-03-13 06:24] LABS: CREATININE 0.62 mg/dL (0.55-1.02)
[2022-03-13] MEDS ORDERED: AUGMENTIN 875-875 MG PO (07:47)
[2022-03-13 08:00] VITALS: BP 112/66
== END 2022-03-13 09:30 | disposition home or self-care (01) | DRG 872 ==
LOC: ED 09:00 → 4E 11:36 → EDHOLD 11:36 → 4E 15:31
PROVIDERS: Emergency Medicine; Internal Medicine; Internal Medicine Critical Care Medicine; ADMIT Internal Medicine; ATTEND Internal Medicine
PROC: 0B918ZZ Drainage of Trachea, Via Natural or Artificial Opening Endoscopic (ICD-10-PCS; principal; 2022-03-09)
PROC: 0B998ZZ Drainage of Lingula Bronchus, Via Natural or Artificial Opening Endoscopic (ICD-10-PCS; 2022-03-09)
PROC: 0B9D8ZZ Drainage of Right Middle Lung Lobe, Via Natural or Artificial Opening Endoscopic (ICD-10-PCS; 2022-03-09)
PROC: 0B958ZZ Drainage of Right Middle Lobe Bronchus, Via Natural or Artificial Opening Endoscopic (ICD-10-PCS; 2022-03-09)
PROC: 0B938ZZ Drainage of Right Main Bronchus, Via Natural or Artificial Opening Endoscopic (ICD-10-PCS; 2022-03-09)
PROC: 0B978ZZ Drainage of Left Main Bronchus, Via Natural or Artificial Opening Endoscopic (ICD-10-PCS; 2022-03-09)
PROC: 0B968ZZ Drainage of Right Lower Lobe Bronchus, Via Natural or Artificial Opening Endoscopic (ICD-10-PCS; 2022-03-09)
PROC: 0B9B8ZZ Drainage of Left Lower Lobe Bronchus, Via Natural or Artificial Opening Endoscopic (ICD-10-PCS; 2022-03-09)
DX: A41.51 Sepsis due to Escherichia coli [E. coli] (principal); K56.699 Other intestinal obstruction unspecified as to partial versus complete obstruction; N39.0 Urinary tract infection, site not specified; K44.0 Diaphragmatic hernia with obstruction, without gangrene; A49.8 Other bacterial infections of unspecified site; J45.20 Mild intermittent asthma, uncomplicated; F41.1 Generalized anxiety disorder; I10 Essential (primary) hypertension; G25.81 Restless legs syndrome; G89.29 Other chronic pain; M54.9 Dorsalgia, unspecified; Z88.1 Allergy status to other antibiotic agents; Z88.8 Allergy status to other drugs, medicaments and biological substances; Z90.49 Acquired absence of other specified parts of digestive tract; Z90.710 Acquired absence of both cervix and uterus

== ENCOUNTER → 2022-03-09 | Day surgery (SDC) | payer MEDICARE ==
[~2022-03-09] VITALS: Ht 147.3 cm; Wt 44.0 kg
[~2022-03-09] MED LIST changes: +B12 ACTIVE1000 MCG PO; +CENTRUM SILVER1 EACH PO; +PROVENTIL HFA6.7 GM INH; +TYLENOL325 M2 PO
== END | disposition home or self-care (01) ==
LOC: SDC 03-05 13:15
PROVIDERS: ATTEND Internal Medicine Critical Care Medicine
DX: R91.1 Solitary pulmonary nodule (principal); J44.9 Chronic obstructive pulmonary disease, unspecified; Z85.42 Personal history of malignant neoplasm of other parts of uterus; K21.9 Gastro-esophageal reflux disease without esophagitis; F41.9 Anxiety disorder, unspecified; F32.9 Major depressive disorder, single episode, unspecified; Z86.73 Personal history of transient ischemic attack (TIA), and cerebral infarction without residual deficits; Z53.8 Procedure and treatment not carried out for other reasons

== ENCOUNTER → 2022-03-18 | Outpatient (CLI) | payer MEDICARE | END | disposition home or self-care (01) | LOC: RESCLI 01:53 | PROVIDERS: ATTEND Internal Medicine | DX: J45.909 Unspecified asthma, uncomplicated (principal); E55.9 Vitamin D deficiency, unspecified; M81.0 Age-related osteoporosis without current pathological fracture; F41.9 Anxiety disorder, unspecified; K21.9 Gastro-esophageal reflux disease without esophagitis; I10 Essential (primary) hypertension; K59.00 Constipation, unspecified; E78.5 Hyperlipidemia, unspecified; Z79.899 Other long term (current) drug therapy; Z88.8 Allergy status to other drugs, medicaments and biological substances ==

== ENCOUNTER → 2023-03-11 | Outpatient (CLI) | payer MEDICARE ==
[~2023-03-11] MED LIST changes: +ONDANSETRON ODT8 MG PO
== END ==
LOC: RESCLI 00:34
PROVIDERS: ATTEND Internal Medicine
DX: E78.5 Hyperlipidemia, unspecified (principal); I10 Essential (primary) hypertension; M81.0 Age-related osteoporosis without current pathological fracture; E55.9 Vitamin D deficiency, unspecified; J45.909 Unspecified asthma, uncomplicated; K21.9 Gastro-esophageal reflux disease without esophagitis; F41.9 Anxiety disorder, unspecified; Z88.1 Allergy status to other antibiotic agents; Z88.8 Allergy status to other drugs, medicaments and biological substances; Z98.890 Other specified postprocedural states; Z79.899 Other long term (current) drug therapy

== ENCOUNTER → 2023-04-29 | Outpatient (CLI) | payer MEDICARE ==
[~2023-04-29] MED LIST changes: +AMOX-CLAV 875-1 EACH PO
[2023-04-29 11:45] VITALS: BP 117/58
== END | disposition home or self-care (01) ==
LOC: INJECTION 04-22 10:30
PROVIDERS: ATTEND Internal Medicine
DX: M81.0 Age-related osteoporosis without current pathological fracture (principal)

== ENCOUNTER → 2023-11-03 | Outpatient (CLI) | payer MEDICARE ==
[~2023-11-03] MED LIST changes: +MACRODANTIN100 M1 PO
== END | disposition home or self-care (01) ==
LOC: INJECTION 10:00
PROVIDERS: ATTEND Internal Medicine
DX: M81.0 Age-related osteoporosis without current pathological fracture (principal); I10 Essential (primary) hypertension; K21.9 Gastro-esophageal reflux disease without esophagitis; F41.9 Anxiety disorder, unspecified; F32.A Depression, unspecified; Z90.710 Acquired absence of both cervix and uterus; Z98.890 Other specified postprocedural states